=== PATIENT | female | born 1945 | race Caucasian/White ===

== ENCOUNTER 2016-05-20 09:43 | Inpatient (IN) | payer OTHER ==
[~2016-05-20] VITALS: Ht 167.6 cm; Wt 108.3 kg
--- NOTE | 2016-05-20 10:18 | DIAGNOSTIC IMAGING REPORT ---
PROCEDURE: CT HEAD WITHOUT CONTRAST INDICATION: Code stroke. Combative patient. TECHNIQUE: Noncontrast axial images with sagittal and coronal reformations. COMPARISON: None. FINDINGS: Allowing for mild motion, there are mild old small vessel changes of the white matter. Brain and ventricles are otherwise normal. No evidence of an acute process or hemorrhage. Sinuses and mastoids are normal. IMPRESSION: 1. Mild old small vessel changes of the white matter. 2. Otherwise negative head CT. No evidence of acute process. 3. Findings discussed with Dr. Taran Damon at [address] scans at this facility use dose modulation, iterative reconstruction, and/or weight-based dosing when appropriate to reduce radiation dose to as low as reasonably achievable.
--- NOTE | 2016-05-20 11:54 | DIAGNOSTIC IMAGING REPORT ---
PROCEDURE: XR CHEST 1 VIEW INDICATION: Code stroke. TECHNIQUE: Portable AP view (1100 hours) COMPARISON: None. FINDINGS: Allowing for suboptimal inspiration and overlying wires and electrodes, lungs are clear. Mild cardiomegaly. Mediastinum is normal. Thorax is normal. IMPRESSION: 1. Mild cardiomegaly. 2. Otherwise negative chest (allowing for suboptimal inspiration).
--- NOTE | 2016-05-20 13:11 | DIAGNOSTIC IMAGING REPORT ---
PROCEDURE: CTA HEAD WITH CONTRAST INDICATION: Code stroke. TECHNIQUE: 120 ml of Isovue 370 injected intravenously and axial images were obtained from the vertex through the upper mediastinum with 3D sagittal and coronal MIP reconstructions. COMPARISON: Para head CT earlier today (05/20/2016). FINDINGS: AORTIC ARCH: Mild calcified atheromatous changes of the aortic arch and origins of the great vessels. RIGHT CAROTID SYSTEM: Right carotid system is normal. LEFT CAROTID SYSTEM: Findings suggest probable motion at the base of the left common carotid artery. The rest of the left carotid system is normal. VERTEBROBASILAR SYSTEM: Probable mild motion at the origin of the left vertebral artery. The rest of the vertebral basilar system is normal. INTRACRANIAL ANTERIOR CIRCULATION: Anterior intracranial circulation is normal and there is no evidence of thrombus or stenosis. INTRACRANIAL POSTERIOR CIRCULATION: Posterior circulation is normal and there is no evidence of thrombus or stenosis. IMPRESSION: 1. Mild atheromatous change of the aortic arch. 2. Normal right carotid system. 3. Probable motion at the base of the left common carotid artery which is otherwise normal. Underlying stenosis is less likely. Carotid ultrasound is recommended to confirm. 4. Probable motion at the origin of the left vertebral artery. Stenosis is less likely. Otherwise normal vertebral basilar system. 5. Normal anterior intracranial circulation. 6. Normal posterior intracranial circulation. 7. Findings discussed with Dr. Taran Damon. All CT scans at this facility use dose modulation, iterative reconstruction, and/or weight-based dosing when appropriate to reduce radiation dose to as low as reasonably achievable.
--- NOTE | 2016-05-20 14:34 | ED NURSING NOTES ---
Clinical Report - Nurses [address] [address] [place] [address] 05/20/2016 9:45 Patient: TIRSO MELTON TRIAGE Triage time 09:45. Acuity: LEVEL 2. Chief Complaint: IMPAIRED SPEECH. --09:53 Remberto Hogue R.N. 09:48 05/20/16. BP: 163/88. --09:53 Remberto Hogue R.N. 09:48 05/20/16. HR: 60. O2 saturation: 89%. --10:39 Remberto Hogue R.N. Weight: 110.3 kg measured. Height/Length: 66 inches Estimated. BMI: 39.3. --09:49 Remberto Hogue R.N. Medications Atorvastatin Calcium Oral (Tablet 80 mg) 1 tablet, at bedtime. --10:24 Remberto Hogue R.N. Citalopram Hydrobromide Oral (Tablet 20 mg) 1 tablet, daily. --10:25 Remberto Hogue R.N. Coumadin Oral (Tablet 2 mg) 4.5mg, daily. --10:25 Remberto Hogue R.N. LamoTRIgine Oral (Tablet Dispersible 100 mg) 3 tablets, daily. --10:29 Remberto Hogue R.N. LamoTRIgine Oral (Tablet Dispersible 200 mg) 1 tablet, at HS. --10:29 Remberto Hogue R.N. Lisinopril Oral (Tablet 5 mg), daily. --10:29 Remberto Hogue R.N. Metoprolol Tartrate Oral (Tablet 100 mg) 1 tablet, BID. --10:30 Remberto Hogue R.N. Gabapentin Oral (Capsule 300 mg) 1 capsule, 3x a day. --10:31 Remberto Hogue R.N. Tylenol Oral, as needed. --10:31 Remberto Hogue R.N. Dulcolax Oral, as needed. --10:31 Remberto Hogue R.N. Elizabeth-Lanta Oral (prn). --10:32 Remberto Hogue R.N. Milk of Magnesia Oral. --10:32 Remberto Hogue R.N. Senna Oral, as needed. --10:33 Remberto Hogue R.N. Allergies Penicillins. --10:34 Remberto Hogue R.N. History Arrived by EMS. Historian: EMS. Primary physician (adam). ( Code stroke. sudden onset slurred speech 35 min prior to EMS arrival, witnessed by [facility] staff. Pt had CVA 1.5 weeks ago with subsequent right sided deficit. However, per medic and staff new onset slurred speech was sudden and new today. Code stroke called at 0942 prior to pt arrival. [address] This started just prior to arrival. Patient was last known well (0900). Treatment BAG WORKER: None. --09:53 Remberto Hogue R.N. Treatment BAG WORKER: EMS treatment BAG WORKER verbally communicated. See EMS report. Finger stick glucose performed (160). BP: 180/70. HR: 68 (irregularly-irregular). RR: 16. O2 saturation: 95 % room air. Upon arrival patient confused and lethargic. --10:35 Remberto Hogue R.N. PROBLEMS: Weakness. Atrial Fibrillation. Syncope. Hypercapnia. Respiratory Failure. Fall. Polyneuropathy. Morbid obesity. Major depressive disorder. Hyperlipidemia. Dysphagia. Hemiparesis. Hemiplegia. CVA - Cerebrovascular Accident. Nausea. Abdominal Pain. Neuropathy. COPD - Chronic Obstructive Pulmonary Disease. Depression . Htn. --10:34 Remberto Hogue R.N. Interventions ID band on patient. To treatment room. --09:53 Remberto Hogue R.N. PHYSICAL ASSESSMENT 10:15 05/20/16. To room via stretcher. GENERAL / NEURO / PSYCH: Decreased awareness. [place] Coma Scale: 13- eyes open to voice (3); best verbal response- disoriented (4); best motor response- obeys commands (6). Moves extremities with decreased movement of the right upper and lower extremity (RIGHT facial droop). RESPIRATORY: Respirations not labored. CVS: Capillary refill less than 2 seconds. SKIN: Skin is intact, warm and dry. --10:15 Remberto Hogue R.N. NURSING PROGRESS NOTES 09:56 05/20/2016 Ativan (LORazepam) IVP 1 mg given over 1 minute(s) via site #1. Allergies verified and confirmed 5 rights. IV patency established. IV site checked: no pain, redness, or swelling. IV flushed thoroughly pre- and post-medication administration. IVP given by RN. --10:12 Maryann Mckoy R.N. 09:57 05/20/2016 Zofran (Ondansetron HCl) IVP 4 mg given over 1 minute(s) via site #1. Allergies verified and confirmed 5 rights. IV patency established. IV site checked: no pain, redness, or swelling. IV flushed thoroughly pre- and post-medication administration. IVP given by RN. --10:12 Maryann Mckoy R.N. 10:11 05/20/2016 Site #1 started prior to arrival by EMS via IV in the right antecubital space with an 20g angiocath. --10:11 Maryann Mckoy R.N. The plan of care for this patient has been created. bus driver/monitor, pulse oximeter and NIBP monitor placed on patient. Patient gowned. Head of bed elevated. Call light placed in reach. Side rails up x 2. Bed placed in lowest position. Brakes of bed on. --10:15 Remberto Hogue R.N. 09:55. ( Pt became agitated and thrashing upon arrival to CT. Pt began having emesis on CT table and rolled to side by staff.). --10:16 Remberto Hogue R.N. Cardiac rhythm: atrial fibrillation. --10:38 Remberto Hogue R.N. 10:36 05/20/16. BP: 154/87. HR: 65. RR: 17. O2 saturation: 95% on room air. Temp: 98.1 F (oral). Dotson-Gordon pain scale: 06/01. --10:38 Remberto Hogue R.N. 10:45 05/20/2016 Site #2 started via IV in the right forearm with an 20g angiocath, with aseptic technique and good blood return; one attempt. Blood drawn: rainbow set. Labeled in the presence of the patient and sent to the lab. Saline lock flushed with 10 mL saline. --10:45 Maryann Mckoy R.N. EKG time: (1012). EKG was performed by a tech and shown to the ED physician. --10:48 Maryann Mckoy R.N. 11:01 05/20/16. Drew catheter. During procedure hand hygiene observed and sterile equipment and aseptic technique used. Return of yellow-colored clear urine. She tolerated procedure well. Patient ID band checked for patient name and birthdate. Catheterized urine collected; sample sent to lab for urinalysis. Specimen labeled in the presence of the patient. --11:01 Maryann Mckoy R.N. 11:08 05/20/16. --11:08 Remberto Hogue R.N. 11:07 05/20/16. BP: 120/64. HR: 69. RR: 22. O2 saturation: 95% on room air. --11:08 Remberto Hogue R.N. 11:45 05/20/2016 Started 1 gm of Ceftriaxone IVPB in bag #1 50 mL; at 150 mL/hr over 20 minute(s) via site #2 via IV pump. Allergies verified and confirmed 5 rights. IV patency established. IV site checked: no pain, redness, or swelling. IV flushed thoroughly pre- and post-medication administration. --11:45 Maryann Mckoy R.N. 10:25. Finger stick glucose: 99 mg/dL; performed by tech; result shown to the RN. --11:59 Cindy Chapa 12:02 05/20/2016 Ceftriaxone IVPB Discontinued: bag #1 infused. Total amount infused: 50 mL. IV patency established. IV site checked: no pain, redness, or swelling. IV flushed thoroughly. --12:02 Remberto Hogue R.N. Patient returned from CT by stretcher with tech. --12:32 Remberto Hogue R.N. Cardiac rhythm: atrial fibrillation. --12:55 Remberto Hogue R.N. 12:55 05/20/16. BP: 147/88. HR: 75. RR: 23. O2 saturation: 99%. Pain level now 0/10. --12:55 Remberto Hogue R.N. 13:13 05/20/16. BP: 155/70. HR: 70. RR: 22. O2 saturation: 100% on nasal cannula at 2 liters/minute. --13:13 Maryann Mckoy R.N. 14:51 05/20/16. BP: 136/49. HR: 70. RR: 19. O2 saturation: 93% on room air. Pain level now: 0/10. --14:51 Maryann Mckoy R.N. 14:52 05/20/16. ( Pt alert and oriented x 3. Pt speaking to her son at bedside, and her son on the phone. Pt eating ice chips.). --14:52 Maryann Mckoy R.N. 15:15 05/20/16. BP: 142/71. HR: 64. RR: 18. O2 saturation: 91% on room air. --15:15 Maryann Mckoy R.N. DISPOSITION / DISCHARGE 15:48 05/20/16. BP: 132/70. HR: 74. RR: 18. O2 saturation: 95% on room air. Temp: 97.7 F (oral). Pain level now: 0/10. --15:55 Maryann Mckoy R.N. Departure time: 15:54 May 20 2016. Condition at departure: improved and stable. Admitted to Acute Care. Transported via stretcher by [facility]. Report was given to a nurse via a phone call. Report included patient's care, treatment, medications, reviewed medication reconcilliation, and condition (including any recent changes or anticipated changes). All questions were answered. Report was acknowledged and care was transferred. (JOE Agarwal). Patient has no belongings. Patient's personal items include, pt's friend took her clothes home. --15:55 Maryann Mckoy R.N. 15:48 05/20/2016 Site #[address] upon admission; patent, no pain and no signs of infection or infiltration. Flushed with 10 mL saline; flushes easily. --16:13 Maryann Mckoy R.N. 15:48 05/20/2016 Site #[address] upon admission; patent, no pain and no signs of infection or infiltration. Flushed with 10 mL saline; flushes easily. --16:13 Maryann Mckoy R.N. Locked/Released at 05/20/2016 16:13 by Maryann Mckoy R.N.
--- NOTE | 2016-05-20 14:34 | ED ORDER SUMMARY ---
..... Patient: TIRSO MELTON OrderSheet [facility] VisitID: [id number] [place] [address] 71y, F Registration Date/Time: 05/20/2016 ORDER SHEET Weight: 110.3 kg (measured) Allergies: Penicillins GENERAL ORDERS: CT Head wo Cont Urgent (09:50 05/20/2016 Love Booker) (10:11 MWinterer R.N.) Stroke Panel Stat (10:31 05/20/2016 Love Booker) (Ack 10:37 LTapper) (10:44 MWinterer R.N.) Chest 1V Urgent (10:43 05/20/2016 Love Booker) (Ack 10:53 LTapper) (11:00 MWinterer R.N.) Low Voltage Technician (Continuous) (stroke) (10:43 05/20/2016 Love Booker) (10:44 MWinterer R.N.) Pulse oximeter (10:43 05/20/2016 Love Booker) (10:44 MWinterer R.N.) EKG - ER Stat (10:45 05/20/2016 Love Booker) (10:48 MWinterer R.N.) UA-Culture if indicated Urgent (10:47 05/20/2016 Love Booker) (Ack 10:53 LTapper) (11:00 MWinterer R.N.) - (consult stroke neuro timed at 10:25 am) (11:02 05/20/2016 Love Booker) (11:03 MWinterer R.N.) CTA Head w Cont (No) (grf > 60) Urgent (11:49 05/20/2016 Love Booker) (Ack 12:10 RKaruga) (14:24 MWinterer R.N.) MEDICATION ORDERS: IV FLUIDS: Ativan IV 1 mg (HIGH ALERT MEDICATION, NOW) (09:55 05/20/2016 Love Booker) (10:12 MWinterer R.N.) Zofran IV 4 mg (NOW) (10:12 05/20/2016 MWinterer R.N. verbal order read back to Love Booker) (10:12 MWinterer R.N.) IV Saline Lock (10:43 05/20/2016 Love Booker) (10:45 MWinterer R.N.) IV Saline Lock (10:45 05/20/2016 Love Booker) (11:00 MWinterer R.N.) Ceftriaxone IV 1 gm/50mL (NOW) (11:22 05/20/2016 Love Booker) (Ack 11:31 MWinterer R.N.) (11:45 MWinterer R.N.) ORDER SHEET NOTES: [Electronically signed by Maryann Mckoy R.N. (16:13 05/20/2016)] [Electronically signed by Taran Damon Dr. (10:13 05/21/2016)] [Electronically locked/signed by Maryann Mckoy R.N. (16:13 05/20/2016)]
--- NOTE | 2016-05-20 14:34 | ED NURSING NOTES ---
Clinical Report - Nurses [address] [address] [place] [address] 05/20/2016 9:45 Patient: TIRSO MELTON TRIAGE Triage time 09:45. Acuity: LEVEL 2. Chief Complaint: IMPAIRED SPEECH. --09:53 Remberto Hogue R.N. 09:48 05/20/16. BP: 163/88. --09:53 Remberto Hogue R.N. 09:48 05/20/16. HR: 60. O2 saturation: 89%. --10:39 Remberto Hogue R.N. Weight: 110.3 kg measured. Height/Length: 66 inches Estimated. BMI: 39.3. --09:49 Remberto Hogue R.N. Medications Atorvastatin Calcium Oral (Tablet 80 mg) 1 tablet, at bedtime. --10:24 Remberto Hogue R.N. Citalopram Hydrobromide Oral (Tablet 20 mg) 1 tablet, daily. --10:25 Remberto Hogue R.N. Coumadin Oral (Tablet 2 mg) 4.5mg, daily. --10:25 Remberto Hogue R.N. LamoTRIgine Oral (Tablet Dispersible 100 mg) 3 tablets, daily. --10:29 Remberto Hogue R.N. LamoTRIgine Oral (Tablet Dispersible 200 mg) 1 tablet, at HS. --10:29 Remberto Hogue R.N. Lisinopril Oral (Tablet 5 mg), daily. --10:29 Remberto Hogue R.N. Metoprolol Tartrate Oral (Tablet 100 mg) 1 tablet, BID. --10:30 Remberto Hogue R.N. Gabapentin Oral (Capsule 300 mg) 1 capsule, 3x a day. --10:31 Remberto Hogue R.N. Tylenol Oral, as needed. --10:31 Remberto Hogue R.N. Dulcolax Oral, as needed. --10:31 Remberto Hogue R.N. Elizabeth-Lanta Oral (prn). --10:32 Remberto Hogue R.N. Milk of Magnesia Oral. --10:32 Remberto Hogue R.N. Senna Oral, as needed. --10:33 Remberto Hogue R.N. Allergies Penicillins. --10:34 Remberto Hogue R.N. History Arrived by EMS. Historian: EMS. Primary physician (adam). ( Code stroke. sudden onset slurred speech 35 min prior to EMS arrival, witnessed by [facility] staff. Pt had CVA 1.5 weeks ago with subsequent right sided deficit. However, per medic and staff new onset slurred speech was sudden and new today. Code stroke called at 0942 prior to pt arrival. [address] This started just prior to arrival. Patient was last known well (0900). Treatment GRAPPLE CREW LEADER: None. --09:53 Remberto Hogue R.N. Treatment GRAPPLE CREW LEADER: EMS treatment GRAPPLE CREW LEADER verbally communicated. See EMS report. Finger stick glucose performed (160). BP: 180/70. HR: 68 (irregularly-irregular). RR: 16. O2 saturation: 95 % room air. Upon arrival patient confused and lethargic. --10:35 Remberto Hogue R.N. PROBLEMS: Weakness. Atrial Fibrillation. Syncope. Hypercapnia. Respiratory Failure. Fall. Polyneuropathy. Morbid obesity. Major depressive disorder. Hyperlipidemia. Dysphagia. Hemiparesis. Hemiplegia. CVA - Cerebrovascular Accident. Nausea. Abdominal Pain. Neuropathy. COPD - Chronic Obstructive Pulmonary Disease. Depression . Htn. --10:34 Remberto Hogue R.N. Interventions ID band on patient. To treatment room. --09:53 Remberto Hogue R.N. PHYSICAL ASSESSMENT 10:15 05/20/16. To room via stretcher. GENERAL / NEURO / PSYCH: Decreased awareness. [place] Coma Scale: 13- eyes open to voice (3); best verbal response- disoriented (4); best motor response- obeys commands (6). Moves extremities with decreased movement of the right upper and lower extremity (RIGHT facial droop). RESPIRATORY: Respirations not labored. CVS: Capillary refill less than 2 seconds. SKIN: Skin is intact, warm and dry. --10:15 Remberto Hogue R.N. NURSING PROGRESS NOTES 09:56 05/20/2016 Ativan (LORazepam) IVP 1 mg given over 1 minute(s) via site #1. Allergies verified and confirmed 5 rights. IV patency established. IV site checked: no pain, redness, or swelling. IV flushed thoroughly pre- and post-medication administration. IVP given by RN. --10:12 Maryann Mckoy R.N. 09:57 05/20/2016 Zofran (Ondansetron HCl) IVP 4 mg given over 1 minute(s) via site #1. Allergies verified and confirmed 5 rights. IV patency established. IV site checked: no pain, redness, or swelling. IV flushed thoroughly pre- and post-medication administration. IVP given by RN. --10:12 Maryann Mckoy R.N. 10:11 05/20/2016 Site #1 started prior to arrival by EMS via IV in the right antecubital space with an 20g angiocath. --10:11 Maryann Mckoy R.N. The plan of care for this patient has been created. patient monitor, pulse oximeter and NIBP monitor placed on patient. Patient gowned. Head of bed elevated. Call light placed in reach. Side rails up x 2. Bed placed in lowest position. Brakes of bed on. --10:15 Remberto Hogue R.N. 09:55. ( Pt became agitated and thrashing upon arrival to CT. Pt began having emesis on CT table and rolled to side by staff.). --10:16 Remberto Hogue R.N. Cardiac rhythm: atrial fibrillation. --10:38 Remberto Hogue R.N. 10:36 05/20/16. BP: 154/87. HR: 65. RR: 17. O2 saturation: 95% on room air. Temp: 98.1 F (oral). Dotson-Gordon pain scale: 06/01. --10:38 Remberto Hogue R.N. 10:45 05/20/2016 Site #2 started via IV in the right forearm with an 20g angiocath, with aseptic technique and good blood return; one attempt. Blood drawn: rainbow set. Labeled in the presence of the patient and sent to the lab. Saline lock flushed with 10 mL saline. --10:45 Maryann Mckoy R.N. EKG time: (1012). EKG was performed by a tech and shown to the ED physician. --10:48 Maryann Mckoy R.N. 11:01 05/20/16. Drew catheter. During procedure hand hygiene observed and sterile equipment and aseptic technique used. Return of yellow-colored clear urine. She tolerated procedure well. Patient ID band checked for patient name and birthdate. Catheterized urine collected; sample sent to lab for urinalysis. Specimen labeled in the presence of the patient. --11:01 Maryann Mckoy R.N. 11:08 05/20/16. --11:08 Remberto Hogue R.N. 11:07 05/20/16. BP: 120/64. HR: 69. RR: 22. O2 saturation: 95% on room air. --11:08 Remberto Hogue R.N. 11:45 05/20/2016 Started 1 gm of Ceftriaxone IVPB in bag #1 50 mL; at 150 mL/hr over 20 minute(s) via site #2 via IV pump. Allergies verified and confirmed 5 rights. IV patency established. IV site checked: no pain, redness, or swelling. IV flushed thoroughly pre- and post-medication administration. --11:45 Maryann Mckoy R.N. 10:25. Finger stick glucose: 99 mg/dL; performed by tech; result shown to the RN. --11:59 Cindy Chapa 12:02 05/20/2016 Ceftriaxone IVPB Discontinued: bag #1 infused. Total amount infused: 50 mL. IV patency established. IV site checked: no pain, redness, or swelling. IV flushed thoroughly. --12:02 Remberto Hogue R.N. Patient returned from CT by stretcher with tech. --12:32 Remberto Hogue R.N. Cardiac rhythm: atrial fibrillation. --12:55 Remberto Hogue R.N. 12:55 05/20/16. BP: 147/88. HR: 75. RR: 23. O2 saturation: 99%. Pain level now 0/10. --12:55 Remberto Hogue R.N. 13:13 05/20/16. BP: 155/70. HR: 70. RR: 22. O2 saturation: 100% on nasal cannula at 2 liters/minute. --13:13 Maryann Mckoy R.N. 14:51 05/20/16. BP: 136/49. HR: 70. RR: 19. O2 saturation: 93% on room air. Pain level now: 0/10. --14:51 Maryann Mckoy R.N. 14:52 05/20/16. ( Pt alert and oriented x 3. Pt speaking to her son at bedside, and her son on the phone. Pt eating ice chips.). --14:52 Maryann Mckoy R.N. 15:15 05/20/16. BP: 142/71. HR: 64. RR: 18. O2 saturation: 91% on room air. --15:15 Maryann Mckoy R.N. DISPOSITION / DISCHARGE 15:48 05/20/16. BP: 132/70. HR: 74. RR: 18. O2 saturation: 95% on room air. Temp: 97.7 F (oral). Pain level now: 0/10. --15:55 Maryann Mckoy R.N. Departure time: 15:54 May 20 2016. Condition at departure: improved and stable. Admitted to Acute Care. Transported via stretcher by [facility]. Report was given to a nurse via a phone call. Report included patient's care, treatment, medications, reviewed medication reconcilliation, and condition (including any recent changes or anticipated changes). All questions were answered. Report was acknowledged and care was transferred. (JOE Agarwal). Patient has no belongings. Patient's personal items include, pt's friend took her clothes home. --15:55 Maryann Mckoy R.N. 15:48 05/20/2016 Site #[address] upon admission; patent, no pain and no signs of infection or infiltration. Flushed with 10 mL saline; flushes easily. --16:13 Maryann Mckoy R.N. 15:48 05/20/2016 Site #[address] upon admission; patent, no pain and no signs of infection or infiltration. Flushed with 10 mL saline; flushes easily. --16:13 Maryann Mckoy R.N. Locked/Released at 05/20/2016 16:13 by Maryann Mckoy R.N.
--- NOTE | 2016-05-20 14:34 | ED CLINICAL REPORT ---
Clinical Report - Physicians/Mid Levels [facility] [address] [place] [address] 05/20/2016 9:45 Patient: TIRSO MELTON Arrived- By private vehicle. Historian- patient. HISTORY OF PRESENT ILLNESS Chief Complaint: FACIAL DROOP and IMPAIRED SPEECH. This started today at approximately 9:00 this morning, patient was last known well (9 AM today) and is still present. It was abrupt in onset and has been constant but is not gone now. The patient has had weakness. No numbness, tingling, visual disturbance or impaired swallowing. She has had difficulty with speech. At its maximum deficit described as moderate. When seen in the E.D.,deficit described as moderate. The patient has had altered mental status. No seizure or blackouts. Usually is alert and oriented X3. (residual right-sided weakness with prior CVA approximately one and a half weeks ago.). Similar symptoms previously: Once. Recent medical care: The patient was seen recently and hospitalized. REVIEW OF SYSTEMS Unobtainable due to patient's altered mental status. PAST HISTORY See nurses notes. Medications: Senna Oral, as needed. Milk of Magnesia Oral. Elizabeth-Lanta Oral (prn). Dulcolax Oral, as needed. Tylenol Oral, as needed. Gabapentin Oral (Capsule 300 mg) 1 capsule, 3x a day. Metoprolol Tartrate Oral (Tablet 100 mg) 1 tablet, BID. Lisinopril Oral (Tablet 5 mg), daily. LamoTRIgine Oral (Tablet Dispersible 200 mg) 1 tablet, at HS. LamoTRIgine Oral (Tablet Dispersible 100 mg) 3 tablets, daily. Coumadin Oral (Tablet 2 mg) 4.5mg, daily. Citalopram Hydrobromide Oral (Tablet 20 mg) 1 tablet, daily. Atorvastatin Calcium Oral (Tablet 80 mg) 1 tablet, at bedtime. Allergies: Penicillins. SOCIAL HISTORY unable to obtain secondary to patient'smedical condition. FAMILY HISTORY unable to obtain secondary to patient's medical condition. ADDITIONAL NOTES The nursing notes have been reviewed. PHYSICAL EXAM Vital Signs: 05/20/2016 09:48 BP: 163/88. Hypertensive. Oxygen saturation normal. Appearance: ( sleepy). (obviously ill. non-toxic). Head: Head atraumatic. Eyes: Pupils equal, round and reactive to light. Pupillary exam: Right pupil round and reactive to light directly and consensually and with accommodation. Left pupil: round and reactive to light directly and consensually and with accommodation. ENT: Normal ENT inspection. Airway intact. Pharynx normal. Neck: Normal inspection. Neck supple. No meningeal signs. CVS: Heart rate / rhythm abnormal. Abnormal rate (normal rate). Not tachycardic. Abnormal rhythm. Heart sounds normal. Pulses normal. Respiratory: No respiratory distress. Breath sounds normal. Abdomen: Soft and nontender. No organomegaly. Back: Normal inspection. Skin: Skin warm and dry. Normal skin color. No rash. Normal skin turgor. Extremities: No lower extremity edema. (normal musle bulk and build). Neuro: Not alert. Severely altered mental status: lethargic. Eyes do not open. Best verbal response: incoherent speech. Best motor response: obeys commands. Abnormal verbal response (inappropriate, incoherent, expressive aphasia, dysphasia). Expressive aphasia. Abnormal speech. Facial weakness. Decreased corneal reflex. No cerebellar findings. Finger-nose test abnormal (unable to test). Abnormal gait (unable to test). The patient has had constant, generalized weakness of the right face (moderate), right arm (mild), right hand (mild), right leg (mild), right foot (mild), left arm (mild), left hand (mild), left leg (mild) and left foot (mild). No sensory deficit. No sensory deficit. LABS, X-RAYS, AND EKG EKG: Atrial fibrillation (narrow-complex) (66). Abnormal P waves. Normal QRS complex. Normal axis. Normal ST and T waves, QT and QTc. No ST elevation or depression. The study has been interpreted contemporaneously by me. The study has been independently viewed by me. The EKG appears to be a good tracing. Chest X-ray: (PROCEDURE: XR CHEST 1 VIEW INDICATION: Code stroke. TECHNIQUE: Portable AP view (1100 hours) COMPARISON: None. FINDINGS: Allowing for suboptimal inspiration and overlying wires and electrodes, lungs are clear. Mild cardiomegaly. Mediastinum is normal. Thorax is normal. IMPRESSION: 1. Mild cardiomegaly.). Views: AP (portable). The X-rays were independently viewed by me and interpreted by the radiologist. The X-rays were discussed with the radiologist (via pacs). CT Head: (PROCEDURE: CT HEAD WITHOUT CONTRAST INDICATION: Code stroke. Combative patient. TECHNIQUE: Noncontrast axial images with sagittal and coronal reformations. COMPARISON: None. FINDINGS: Allowing for mild motion, there are mild old small vessel changes of the white matter. Brain and ventricles are otherwise normal. No evidence of an acute process or hemorrhage. Sinuses and mastoids are normal. IMPRESSION: 1. Mild old small vessel changes of the white matter. 2. Otherwise negative head CT. No evidence of acute process.). Head CT performed without contrast. The study was independently viewed by me and interpreted by the radiologist. The study was discussed with the radiologist (via phone and pacs). Laboratory Tests: CBC w Diff: (ELIER: 05/21/2016 05:05) ( [facility] [place] 05/21/2016 05:57) Final results Test Result Flag Units (Reference) WHITE BLOOD COUNT 7.3 K/uL (4.5-11.5) RED BLOOD COUNT 4.40 M/uL (4.00-5.20) HEMOGLOBIN 12.0 gm/dL (12.0-16.0) HEMATOCRIT 36.6 % (36.0-46.0) MEAN CELL VOLUME 83 fL (80-100) MEAN CORPUSCULAR HGB 27 pg (26-34) MEAN CORPUSCULAR HGB CONC 33 g/dL (31-37) RED CELL DISTRIBUTION WIDTH 14.9 H % (11.6-14.8) PLATELET COUNT 204 K/uL (150-400) NEUTROPHIL % 61.8 % (50-75) LYMPH % 25.6 % (25-40) MONO % 8.8 % (3-14) EOSINOPHIL % 3.3 % (0-4) BASOPHIL % 0.5 % (0-2) PT with INR: (ELIER: 05/21/2016 05:05) ( [facility] [place] 05/21/2016 06:03) Final results Test Result Flag Units (Reference) INR 2.6 H (0.8-1.2) Low Intensity Therapy: INR 1.5-2.0 PT range 18.5-23.1Mod.Intensity Therapy: INR 2.0-3.0 PT range 23.1-31.5High Intensity Therapy: INR 2.5-3.5 PT range 27.4-35.5High Intensity Therapy 2: INR 3.0-4.0 PT range 31.5-39.3 BMP: (ELIER: 05/21/2016 05:05) ( MsgRcvd 05/21/2016 05:58) Final results Test Result Flag Units (Reference) GLUCOSE 110 mg/dL (70-110) BUN 14 mg/dL (7-18) CREATININE 0.8 mg/dL (0.6-1.3) Estimated GFR >60 mL/min Estimated GFR- >60 mL/min Note: Persistent reduction over 3 months in eGFR<60 mL/min/1.73 m2 defines CKD. Patients with eGFR values>=60 mL/min/1.73 m2 may also have CKD if evidence ofpersistent proteinuria. Additional information may be foundat [email or web address]. SODIUM 143 mmol/L (136-145) POTASSIUM 3.5 mmol/L (3.5-5.1) CHLORIDE 106 mmol/L (98-107) CARBON DIOXIDE 31 mmol/L (21-32) CALCIUM 8.3 L mg/dL (8.5-10.1) UA-Culture if indicated: (ELIER: 05/20/2016 10:56) ( MsgRcvd 05/20/2016 11:14) Final results Test Result Flag Units (Reference) URINE COLOR YELLOW URINE APPEARANCE CLEAR URINE GLUCOSE NEGATIVE (NEGATIVE) URINE BILIRUBIN NEGATIVE (NEGATIVE) URINE KETONE NEGATIVE (NEGATIVE) URINE SPECIFIC GRAVITY 1.020 (1.010-1.030) URINE PH 6.5 (5.0-8.0) URINE PROTEIN TRACE (NEGATIVE) URINE UROBILINOGEN 1.0 EU/dL (0.2-1.0) URINE NITRITE NEGATIVE (NEGATIVE) URINE BLOOD NEGATIVE (NEGATIVE) URINE LEUK ESTERASE TRACE (NEGATIVE) URINE RBC 0-1 rbc/hpf (0-1) URINE WBC 5-10 wbc/hpf (0-1) URINE EPITHELIAL CELLS 1-3 EPI/hpf (0-5) URINE BACTERIA MODERATE (2+ TO 3+) (NONE SEEN) URINE COMMENT CULTURE INDICATED 1+ MUCOUS. FEW TRANSITIONAL EPITHELIAL CELLS.URINE CULTURES ARE SET-UP BASED ON THE FOLLOWING CRITERIA:POSITIVE NITRITEPOSITIVE LEUKOCYTE ESTERASEGREATER THAN 10 WHITE BLOOD CELLSMODERATE (2+) OR GREATER BACTERIA CBC w Diff: (ELIER: 05/20/2016 10:38) ( Mscvd 05/20/2016 10:47) Final results Test Result Flag Units (Reference) WHITE BLOOD COUNT 9.7 K/uL (4.5-11.5) RED BLOOD COUNT 4.62 M/uL (4.00-5.20) HEMOGLOBIN 12.6 gm/dL (12.0-16.0) HEMATOCRIT 38.0 % (36.0-46.0) MEAN CELL VOLUME 82 fL (80-100) MEAN CORPUSCULAR HGB 27 pg (26-34) MEAN CORPUSCULAR HGB CONC 33 g/dL (31-37) RED CELL DISTRIBUTION WIDTH 15.4 H % (11.6-14.8) PLATELET COUNT 259 K/uL (150-400) NEUTROPHIL % 74.4 % (50-75) LYMPH % 16.2 L % (25-40) MONO % 6.5 % (3-14) EOSINOPHIL % 2.6 % (0-4) BASOPHIL % 0.3 % (0-2) PT with INR: (ELIER: 05/20/2016 10:38) ( MsgRcvd 05/20/2016 11:00) Final results Test Result Flag Units (Reference) INR 2.5 H (0.8-1.2) Low Intensity Therapy: INR 1.5-2.0 PT range 18.5-23.1Mod.Intensity Therapy: INR 2.0-3.0 PT range 23.1-31.5High Intensity Therapy: INR 2.5-3.5 PT range 27.4-35.5High Intensity Therapy 2: INR 3.0-4.0 PT range 31.5-39.3 APTT 54 H SECONDS (24-34) FIBRINOGEN 489 H mg/dL (193-455) D-DIMER QUANTITATIVE 1.79 H ug/mLFEU (0.27-0.52) The primary value of this quantitative assay relates toits negative predictive value (i.e. exclusion) of pulmonaryembolism/deep vein thrombosis/DIC.Elevated levels of d-dimer may also occur with:, age, cancer, inflammation, liver disease,post-op, infection, hematoma, coronary disease, peripheralarteriopathy, bleeding disorders and thrombolytic treatment.Results should be correlated with other clinical andradiological data.Testing Methodology: Latex Immunoassay CMP: (ELIER: 05/20/2016 10:38) ( MsgRcvd 05/20/2016 11:03) Final results Test Result Flag Units (Reference) GLUCOSE 118 H mg/dL (70-110) BUN 15 mg/dL (7-18) CREATININE 0.9 mg/dL (0.6-1.3) Estimated GFR >60 mL/min Estimated GFR- >60 mL/min Note: Persistent reduction over 3 months in eGFR<60 mL/min/1.73 m2 defines CKD. Patients with eGFR values>=60 mL/min/1.73 m2 may also have CKD if evidence ofpersistent proteinuria. Additional information may be foundat [email or web address]. SODIUM 145 mmol/L (136-145) POTASSIUM 3.6 mmol/L (3.5-5.1) CHLORIDE 106 mmol/L (98-107) CARBON DIOXIDE 32 mmol/L (21-32) CALCIUM 8.4 L mg/dL (8.5-10.1) TOTAL PROTEIN 6.5 g/dL (6.4-8.2) ALBUMIN 2.9 L g/dL (3.3-5.0) BILIRUBIN, TOTAL 0.6 mg/dL (0.0-1.0) ALKALINE PHOSPHATASE 92 U/L (46-116) AST (SGOT) 24 U/L (15-37) ALT (SGPT) 24 U/L (12-78) Culture, Urine: (ELIER: 05/20/2016 10:56) ( MsgRcvd 05/21/2016 09:22) IP Test Result Flag Units (Reference) CULTURE, URINE DATE: 05/21/16 PRELIM REPORT: PRELIMINARY REPORT #1 Results faxed: ACUTE CARE 05/21/16 @[id number] -- GNR QUANTITATIVE URINE GROWTH: GREATER THAN 100,000 CFU/mL ID AND SENS TO FOLLOW: IDENTIFICATION AND SENSITIVITY TO FOLLOW . PROGRESS AND PROCEDURES Course of Care: The patient is a 71 yo female with hx of CVA last week presenting for evaluation of slurred speech and right sided facial droop. Patient with reported residual deficits on the right side. Patient is not able to communicate verbally. CT scan for code stroke ordered immediately. Accu-Chek in the field noted to be normal. Patient with agitation in the CT scanner. Ativan IV ordered. Patient with improved cooperation. Episode of wretching that improved with IV zofran. Patient obtained CT scan without further incident. Repeat neuro exam shows patient with NIH stroke scale of 15. Patient continues to have unchanged neuro exam. Per EMS, patient needed intubation on last time they transported patient. Patient taken to [facility] in [place]. Requesting records. At this time. Patient not a candidate for tPA. had spoken with the stroke neurology team over at [facility]. Had spoken to the stroke fellow Dr. Walton. Requested the patient's CT scan be pushed over to their system. This has been performed. Report that they will contact us back after they've reviewed the CT scan results. Had alsoinformed the staff there of the patient's recent admission to [facility] in [place] forsimilar presentation. Therefore the family will review the images there as they do have access. We were contacted back by [facility] in regards to further workup to be performed on the patient. Because of the patient's atrial fibrillation there was a possibility of embolicausing the patient's symptoms of stroke in the emergency department today. Because of this, they requested a CTA of the head be performed. there was possibility of having the clot removed if one was present and causing the patient's symptoms here today. CT A of the head was ordered. I had called to radiology to pushed the patient to the front of the line. Per neurology, there was a 6 hour window from the onset of symptoms to when the embolectomy could occur. Family updated on the status of the patient's workup and any procedures. I discussion with the family in regards to possibilities of treatment and transfer to an outside facility. The expressed financial concerns for the medical billhowever was agreeable to the treatment if it was recommended. Patient is noted to be a [employer]. They requested no blood products be given. Because of the time window, there is approximately 2 hours leftperiod because of the nature of the situation, we had contacted flight medics for emergency transport via air. The patient's CT scan was performed. We had contacted [facility] to have these reviewed because of the time sensitive nature of the scan. We are awaiting their review. CT scan was reviewed by [facility]. They state that they will get back to us after they had consult with the interventional neuroradiologist. We had heard back from the interventional neuroradiologist and they are unable to safely remove the clot because of thedistal nature of the blockage. They report the blockage was in the M3 branch of the left middle cerebral artery. They report because of the small area, it would be unlikely to prove any benefit for the removal of the clot and would only put the patient at increased risk of complications. because of the patient's clinical presentation, patient will still need to be admitted to the hospital. the stroke team at [facility] recommended that the patient be taken off the warfarin and does not need to have aspirin therapy at this ti Plan is to monitor the patient's progression and obtain stroke workup at our facility. I'd spoken to our hospitalist who will accept the patient. While the patient was awaiting transfer to the floor, noted to have rapid improvement of her symptoms. Patient became verbaland states that she can remember everything that happened. Patient without any signs of facial droop. Per family, patient is back at baseline. Patient was admitted without any delay or worsening of condition. Family updated on workup, diagnosis, and plan of care. All questions answered. The patient and family expressed understanding of these instructions and was agreeable to them. Critical care performed (120 minutes). Time is exclusive of separately billable procedures. Time includes: direct patient care, patient reassessment, coordination of patient care, interpretation of data (laboratory data and chest xrays), review of patient's medical records, medical consultation, family consultation regarding treatment decisions and documentation of patient care. Disposition: Admitted to Acute Care. (Electronically signed by Taran Damon Dr. 05/21/2016 10:13)
--- NOTE | 2016-05-20 14:34 | ED ORDER SUMMARY ---
..... Patient: TIRSO MELTON OrderSheet [facility] VisitID: [id number] [place] [address] 71y, F Registration Date/Time: 05/20/2016 ORDER SHEET Weight: 110.3 kg (measured) Allergies: Penicillins GENERAL ORDERS: CT Head wo Cont Urgent (09:50 05/20/2016 Love Booker) (10:11 MWinterer R.N.) Stroke Panel Stat (10:31 05/20/2016 Love Booker) (Ack 10:37 LTapper) (10:44 MWinterer R.N.) Chest 1V Urgent (10:43 05/20/2016 Love Booker) (Ack 10:53 LTapper) (11:00 MWinterer R.N.) Second Worker (Continuous) (stroke) (10:43 05/20/2016 Love Booker) (10:44 MWinterer R.N.) Pulse oximeter (10:43 05/20/2016 Love Booker) (10:44 MWinterer R.N.) EKG - ER Stat (10:45 05/20/2016 Love Booker) (10:48 MWinterer R.N.) UA-Culture if indicated Urgent (10:47 05/20/2016 Love Booker) (Ack 10:53 LTapper) (11:00 MWinterer R.N.) - (consult stroke neuro timed at 10:25 am) (11:02 05/20/2016 Love Booker) (11:03 MWinterer R.N.) CTA Head w Cont (No) (grf > 60) Urgent (11:49 05/20/2016 Love Booker) (Ack 12:10 RKaruga) (14:24 MWinterer R.N.) MEDICATION ORDERS: IV FLUIDS: Ativan IV 1 mg (HIGH ALERT MEDICATION, NOW) (09:55 05/20/2016 Love Booker) (10:12 MWinterer R.N.) Zofran IV 4 mg (NOW) (10:12 05/20/2016 MWinterer R.N. verbal order read back to Love Booker) (10:12 MWinterer R.N.) IV Saline Lock (10:43 05/20/2016 Love Booker) (10:45 MWinterer R.N.) IV Saline Lock (10:45 05/20/2016 Love Booker) (11:00 MWinterer R.N.) Ceftriaxone IV 1 gm/50mL (NOW) (11:22 05/20/2016 Love Booker) (Ack 11:31 MWinterer R.N.) (11:45 MWinterer R.N.) ORDER SHEET NOTES: [Electronically signed by Maryann Mckoy R.N. (16:13 05/20/2016)] [Electronically signed by Taran Damon Dr. (10:13 05/21/2016)] [Electronically locked/signed by Maryann Mckoy R.N. (16:13 05/20/2016)]
[2016-05-20 16:36] VITALS: BP 155/87
[2016-05-20] MEDS ORDERED: LIPITOR80 MG PO (16:43)
[2016-05-20] MEDS ORDERED: CITALOPRAM HYDR20 MG PO (16:43)
[2016-05-20] MEDS ORDERED: COUMADIN4 MG PO (16:44)
[2016-05-20] MEDS ORDERED: ALOPHEN5 MG PR (16:45)
[2016-05-20] MEDS ORDERED: NEURONTIN300 MG PO (16:48)
[2016-05-20] MEDS ORDERED: MYLANT1 PO (16:49)
[2016-05-20] MEDS ORDERED: LAMICTAL ODT200 MG PO (16:49)
[2016-05-20] MEDS ORDERED: LAMOTRIGINE100 MG PO (16:50)
[2016-05-20] MEDS ORDERED: PRINIVIL5 MG PO (16:50)
[2016-05-20] MEDS ORDERED: LOPRESSOR50 MG PO (16:50)
[2016-05-20] MEDS ORDERED: MILK OF MAGNESI10 ML PO (16:52)
[2016-05-20] MEDS ORDERED: SENNA-LAX8.6 MG PO (16:52)
[2016-05-20] MEDS ORDERED: ACETAMINOPHEN325 MG PO (16:53)
[2016-05-20 18:08] VITALS: BP 142/75
--- NOTE | 2016-05-20 20:39 | HISTORY AND PHYSICAL ---
ADMITTED: 05/20/2016 CHIEF COMPLAINT: 1. Altered mental status 2. High blood pressure HISTORY OF PRESENT ILLNESS: This is a 71-year-old female who was recently admitted to [facility] with a diagnosis of a stroke, currently in rehabilitation, recovering from that stroke, who had a sudden onset of altered mental status and significantly elevated blood pressures earlier today. She was transported to [facility] Emergency Department immediately and was diagnosed with a stroke. The patient apparently had been having intermittent episodic unprovoked agitation for the 1-2 months prior to her presentation to the emergency department at [place] on 05/09/2016. At that time, she awoke and was seen abnormally sitting on a chair with coffee on the side table but not drinking it. Around 7:30, she had acute onset of abdominal pain and cramping and then reported nausea. She then tried to grab for something and was unable to speak, but could answer yes or no. 911 was called and felt that she might have been having right-sided weakness and transported her to the emergency room. In the ambulance, she was combative and felt unable to protect her airway and, therefore, was intubated with succinylcholine, etomidate, Versed, and fentanyl. CTA of the head showed pulmonary artery dilatation to 4.2 cm, suggestive of pulmonary hypertension; mild plaque at the right carotid bifurcation with no hemodynamically significant narrowing; atherosclerosis of the supraclinoid right ICA with maximal narrowing of 34%; atherosclerosis of the supraclinoid left ICA with maximal narrowing of 50%. Lung apices were noted to have mild central lobar emphysema, mild diffuse ground-glass density with minimal interlobular septal thickening within the visualized lung apices, suggestive of alveolar and/or interstitial pulmonary edema. CTA showed 2 small left frontal white matter acute lacunar infarcts. T-PA was not given at that time as it was thought to be out of the window. TTE was performed during this hospitalization and showed an ejection fraction of 55% to 60% with a negative bubble study and atrial fibrillation and PAP of 28 mmHg. The patient was monitored in the hospital until 05/16/2016 and then was discharged to [facility]. She was recovering at [facility] when the nurse noted this morning she had sudden onset of significant altered mental status and severe hypertension. An ambulance was called, and patient was transferred to [facility] Emergency Room. MEDICAL/SURGICAL HISTORY: Past medical history: 1. Hypertension. 2. Chronic obstructive pulmonary disease. 3. Atrial fibrillation. 4. Bipolar spectrum disorder. 5. CVA, 04/2016. Past surgical history: Partial colectomy secondary to diverticulosis. MEDICATIONS: 1. Atorvastatin 80 mg p.o. daily. 2. Citalopram 20 mg p.o. daily. 3. Coumadin 4.5 mg p.o. daily. 4. Lamictal 300 mg p.o. daily and 200 mg p.o. at bedtime. 5. Lisinopril 5 mg p.o. daily. 6. Gabapentin 300 mg p.o. t.i.d. 7. Metoprolol 100 mg p.o. b.i.d. 8. Tylenol 650 mg p.o. q.4 hours p.r.n. ALLERGIES: 1. PENICILLIN. SOCIAL HISTORY: The patient, prior to being at [facility] and [facility], was living with her and 8 kitties. She quit smoking 12 years ago after 34- pack-years of smoking. She denies any drug or alcohol use. The patient is a Restorationist and adamantly denies blood transfusions. FAMILY HISTORY: Her grandfather had a heart attack in his 60s. Her grandmother of old age. Her mother of an unknown type of cancer. Her father of leukemia. REVIEW OF SYSTEMS: A full 12-point review of systems was done and was negative, except as per HPI. PHYSICAL EXAMINATION: VITAL SIGNS: Blood pressure is 142/75, pulse is 72, respiratory rate is 16, O2 saturation 94% on room air. T-max is 36.7 degrees Celsius. GENERAL: This is a well-appearing female lying in bed in no apparent distress. HEENT: Head is atraumatic, normocephalic. Pupils are equal, round, and reactive to light with accommodation bilaterally. Extraocular muscles are intact bilaterally. NEUROLOGIC: There might be very slight facial droop on the right side and borderline weakness in her right hand as compared to her left, but she has normal strength in her feet currently. HEART: S1, S2, regular rate and rhythm. No S3, S4, murmurs, gallops, or rubs. LUNGS: Clear to auscultation bilaterally. ABDOMEN: Soft, nontender, nondistended without hepatosplenomegaly or masses. Bowel sounds are active. EXTREMITIES: There is no peripheral edema. LAB/IMAGING: Sodium is 145, potassium 3.6, chloride of 106, bicarbonate 36, BUN of 15, creatinine of 0.9, glucose of 118. White blood cell count 9.7, hemoglobin 12.6, hematocrit 38, platelets 259, calcium 8.4, total protein 6.5, albumin 2.9. Total bilirubin 0.6, alkaline phosphatase of 92, AST of 24, ALT of 24. UA shows trace leukocyte esterase and 2-3 WBCs. INR 2.5. Fibrinogen 489. D-dimer 1.79. CT of the head showed mild old vessel white matter CVA. Chest x-ray showed mild cardiomegaly. CTA of the head showed mild atherosclerosis change of aortic arch; normal right carotid system; Probable motion at the base of the left common carotid, which is otherwise normal, underlying stenosis is less likely, carotid ultrasound could be used to confirm; probable motion at the origin of the left vertebral artery, stenosis is less likely. There is normal vertebrobasilar system. IMPRESSION: This is a 71-year-old female with a recent cerebrovascular accident , presenting to the hospital with symptoms consistent with transient ischemic attack with recurrent transient ischemic attack versus cerebrovascular accident, currently improving. PLAN: 1. Fluids, electrolytes, nutrition: The patient is currently nothing by mouth with minimal ice chips as dysphagia is being questioned. She will have a speech evaluation in the morning. 2. Cardiac: a. The patient has atrial fibrillation is adequately anticoagulated on Coumadin. Apparently, the emergency department physician talked with Neurology at [facility], and [facility] is suggesting no further anticoagulation until she is recovering from her stroke. b. Hypertension: We will currently hold the patient's antihypertensives for the next 24 hours unless her blood pressure gets higher than 180/110. 3. Respiratory: The patient has chronic obstructive pulmonary disease, which is currently asymptomatic. 4. Neurologic: a. The patient claims she has bipolar spectrum disorder for which she takes Lamictal; however, on her medication list it says that she takes it for seizures. We will request further records and need to corroborate information with family and primary care provider. b. The patient with transient ischemic attack versus cerebrovascular accident. We will monitor overnight. The patient does seem to have had an adequate evaluation at [place] and records are in the chart. We will discuss with Neurology about the necessity to add Plavix to current medication regimen. 5. Prophylaxis: a. The patient is currently on sequential compression devices as Neurology has recommended against chemical deep venous thrombosis prophylaxis. b. The patient is also nothing by mouth, so therefore will start gastrointestinal ulcer prophylaxis. 6. CODE STATUS: DO NOT RESUSCITATE. I tried to investigate the patient's POLST (Physicians Orders for Life-Sustaining Treatment) form, which indicates that she is comfort care only. However, the patient was unclear about whether she would be strictly comfort care only or not. I recommend discussing each possible intervention with this patient as to whether she would want it done or not.
--- NOTE | 2016-05-20 22:30 | NUR ---
pt arrived on the floor around 1625. Pt pleasant and cooperative, A&Ox4. No c/o pain, nausea, or SOB. Noted slight L consumer insight manager weakness, but otherwise negative neuro check. Able to side with minimal assist. Pt failed the swallow test, and was placed on NPO with 1/3 of cup of ice chips per shift. aware. Will cont to monitor.
[2016-05-20 23:02] VITALS: BP 137/59
--- NOTE | 2016-05-21 00:08 | NUR ---
TAKEN OVER THIS PATIENT'S CARE. REMAINS ALERT AND ORIENTATED BUT HAD TO BE KEPT NPO TLILL SWALLOW EVAL. DENIES ANY PAIN NOR NAUSEA /VOMITING. KEPT ON 2 HRLY NEURO AX.
[2016-05-21 02:23] VITALS: BP 133/62
[2016-05-21 06:22] VITALS: BP 150/73
--- NOTE | 2016-05-21 07:38 | Progress Note ---
Subjective General Note Date: May 21, 2016 Admission Date: May 20, 2016 Hospital Day: 2 PCP: Richy Rodriguez M.D. Status: Inpatient Advanced Directive: NO CODE Room: 202 Brief History: The patient is a 71-year-old white female with a significant past medical history of atrial fibrillation, chronic anticoagulation, cerebrovascular disease status post CVA, who presented to [facility] emergency department on the day of admission secondary to complaints of altered mental status/TIA. ER evaluation was consistent with possible TIA/CVA. Secondary to the above the patient was admitted by Pat Moran M.D. for further evaluation treatment For other history present illness, past medical history, family history, social history, review of systems, and admission physical examination please see the patient's history and physical examination and ER visit note in the patient's medical record. Subjective: The patient states she is doing well today. All neurological deficits have resolved. Patient up ambulating. Patient wishes discharge at this time. Does not wish to pursue further evaluation. Patient requests: Patient wishes discharge. Does not wish to pursue further evaluation. Medications and Allergies Medications Current Medications Sig/Allie Start time Last Medication Dose Route Stop Time Status Admin Ceftriaxone Sodium/ 50 ML DAILY 05/21 0900 AC Dextrose IV Dextrose/Sodium 1,000 ML ASDIRECTED 05/20 1915 AC 05/20 Chloride/Electrolyt IV 2248 Morphine Sulfate See Dose Q4H PRN 05/20 1400 AC Insts (1) IV Ondansetron HCl 4 MG Q8H PRN 05/20 1400 AC IV Sodium Chloride 1,000 ML ASDIRECTED 05/20 1400 CAN IV Dose Instructions: (1)Morphine Sulfate: 2 - 4 MG Allergies Coded Allergies: Penicillins (Intermediate, Nausea 05/20/16) Physical Exam Vital Signs / I&Os Vital Signs Date Time Temp Pulse Resp B/P Pulse O2 O2 Flow FiO2 Ox Delivery Rate 05/21 0622 98.1 74 18 150/73 91 Room Air 05/21 0400 Room Air 05/21 0223 97.9 82 18 133/62 92 Room Air 05/21 0200 Room Air 05/20 2302 98.1 83 16 137/59 92 Room Air 05/20 1808 98.1 72 16 142/75 94 Room Air 05/20 1636 97.9 76 18 155/87 94 Room Air 05/20 1630 Room Air I&O 05/21 0000 05/20 1600 01/29 0800 Intake Total 449 Output Total 500 Balance -51 General Appearance Alert, Oriented X3, Cooperative, No acute distress Lungs Clear to auscultation Cardiovascular Regular rate and rhythm, Normal S1 and S2 Abdomen Normal bowel sounds, Soft, No tenderness Extremities No cyanosis, No clubbing, No edema Neurological Cranial nerves intact, Strength 5/5 x4 ext's, No lateralizing signs Psych/Mental Status Mental status normal, Mood normal LAB Results Laboratory Tests 05/21 05/20 0505 1056 Chemistry Plasma Sodium (136 - 145 mmol/L) 143 Plasma Potassium (3.5 - 5.1 mmol/L) 3.5 Plasma Chloride (98 - 107 mmol/L) 106 CO2 (Enzymatic) (21 - 32 mmol/L) 31 BUN (7 - 18 mg/dL) 14 Creatinine (0.6 - 1.3 mg/dL) 0.8 Est GFR ( Amer) (mL/min) >60 Est GFR (Non-Af Amer) (mL/min) >60 Glucose (70 - 110 mg/dL) 110 Plasma Calcium (8.5 - 10.1 mg/dL) 8.3 Coagulation INR (0.8 - 1.2) 2.6 Hematology WBC (4.5 - 11.5 K/uL) 7.3 RBC (4.00 - 5.20 M/uL) 4.40 Hgb (12.0 - 16.0 gm/dL) 12.0 Hct (36.0 - 46.0 %) 36.6 MCV (80 - 100 fL) 83 MCH (26 - 34 pg) 27 RDW (11.6 - 14.8 %) 14.9 Neut % (Auto) (50 - 75 %) 61.8 Lymph % (Auto) (25 - 40 %) 25.6 Gregory % (Auto) (3 - 14 %) 8.8 Eos % (Auto) (0 - 4 %) 3.3 Baso % (Auto) (0 - 2 %) 0.5 Plt Count, EDTA (150 - 400 K/uL) 204 PUBS MCHC (31 - 37 g/dL) 33 Urines Urine Color YELLOW Urine Appearance CLEAR Urine pH (5.0 - 8.0) 6.5 Ur Specific [place] (1.010 - 1.030) 1.020 Urine Protein (NEGATIVE) TRACE Urine Ketones (NEGATIVE) NEGATIVE Urine Blood (NEGATIVE) NEGATIVE Urine Nitrite (NEGATIVE) NEGATIVE Urine Bilirubin (NEGATIVE) NEGATIVE Urine Urobilinogen (0.2 - 1.0 EU/dL) 1.0 Ur Leukocyte Esterase (NEGATIVE) TRACE Urine RBC (0 - 1 rbc/hpf) 0-1 Urine WBC (0 - 1 wbc/hpf) 5-10 Ur Epithelial Cells (0 - 5 EPI/hpf) 1-3 Urine Bacteria (NONE SEEN) MODERATE (2+ TO 3+) Urine Glucose (NEGATIVE) NEGATIVE Urine Comment CULTURE INDICATED 05/20 1038 Chemistry Plasma Sodium (136 - 145 mmol/L) 145 Plasma Potassium (3.5 - 5.1 mmol/L) 3.6 Plasma Chloride (98 - 107 mmol/L) 106 CO2 (Enzymatic) (21 - 32 mmol/L) 32 BUN (7 - 18 mg/dL) 15 Creatinine (0.6 - 1.3 mg/dL) 0.9 Est GFR ( Amer) (mL/min) >60 Est GFR (Non-Af Amer) (mL/min) >60 Glucose (70 - 110 mg/dL) 118 Plasma Calcium (8.5 - 10.1 mg/dL) 8.4 Total Bilirubin (0.0 - 1.0 mg/dL) 0.6 AST (15 - 37 U/L) 24 ALT (12 - 78 U/L) 24 Alkaline Phosphatase (46 - 116 U/L) 92 Total Protein (6.4 - 8.2 g/dL) 6.5 Albumin (3.3 - 5.0 g/dL) 2.9 Coagulation INR (0.8 - 1.2) 2.5 APTT (24 - 34 SECONDS) 54 Fibrinogen (193 - 455 mg/dL) 489 D-Dimer, Quantitative (0.27 - 0.52 ug/mLFEU) 1.79 Hematology WBC (4.5 - 11.5 K/uL) 9.7 RBC (4.00 - 5.20 M/uL) 4.62 Hgb (12.0 - 16.0 gm/dL) 12.6 Hct (36.0 - 46.0 %) 38.0 MCV (80 - 100 fL) 82 MCH (26 - 34 pg) 27 RDW (11.6 - 14.8 %) 15.4 Neut % (Auto) (50 - 75 %) 74.4 Lymph % (Auto) (25 - 40 %) 16.2 Gregory % (Auto) (3 - 14 %) 6.5 Eos % (Auto) (0 - 4 %) 2.6 Baso % (Auto) (0 - 2 %) 0.3 Plt Count, EDTA (150 - 400 K/uL) 259 PUBS MCHC (31 - 37 g/dL) 33 Microbiology Date/Time Procedure - Status Source Growth 05/20 1056 Urine Culture - RECD URINE CATH Assessment and Plan Problem List 1. Cerebrovascular accident (CVA) involving left middle cerebral artery territory Plan -Status stable, neurological status at baseline status post CVA -Discharged to correction [id number] Dr. Rodriguez -Patient does not pursue any further evaluation -Ongoing rehabilitation 2. UTI (urinary tract infection) Status Acute Onset Date Unknown Plan -Patient with findings of UTI -Discharge today with Keflex 500 mg by mouth 3 times a day -Outpatient follow-up with Dr. Rodriguez 3. Chronic anticoagulation Status Chronic Onset Date Unknown Plan -Patient on chronic anticoagulation -INR therapeutic at 2.6 -Continue present therapy, repeat INR [address] Rodriguez 4. Hypertension Status Chronic Onset Date Unknown Plan -Much improved -Discharge today -Outpatient follow-up with Dr. Rodriguez 5. Altered mental status, unspecified Plan -Resolved -Outpatient follow-up Dr. Rodriguez 6. Atrial fibrillation Status Chronic Onset Date Unknown Plan -Stable -Continue anticoagulation -Outpatient follow-up with Dr. Rodriguez -Continue Lopressor, lisinopril Current status: Fair, improved Anticipated discharge date: Today Anticipated discharge placement: group home facility-DNR/DNI status. Comfort measures only. Patient care time: Time spent in chart review, patient interview, physical exam, CPOE, and care documentation: 30 minutes Visit to patient today: 2 Complexity of care: Moderate For other recommendations regarding discharge diet, activity, followup, and discharge medications please see the patient's discharge instructions. Greater than 30 min. was spent in the patient's discharge preparation including discharge interview and physical examination, progress note, discharge instructions, and discharge summary E&M Codes Discharge: Inpt >30 min spent/[id number]
--- NOTE | 2016-05-21 10:05 | NUR ---
NUTRITION ASSESSMENT: Pt admitted with dx/o CVA, HTN, COPD, A-fib, bipolar disorder. Pt is currently NPO and awaiting swallow evaluation 2/2 suspected dysphagia. Diet Rx: NPO NKFA Wts: 108.3 kg Ht: 66" BMI: 38.7 IBW: 52-66 kg ABW: ~79 kg Est Kcals: ~9487-1967 kcals per day Est Fluids: ~2.4 L per day (or per MD) Est Pro: ~80-95 g per day Meds Incl: IVFs, see eMar for complete list. Labs Incl: (05/21) glucose 110, BUN 14, Creat 0.8, Na+ 143, K+ 3.5, Ca+ 8.3, HGB 12.0, HCT 36.3, albumin 2.9, Total pro 6.5 Skin: Giuseppe 12; skin fragile. waffle overlay in place. A: Pt scheduled for swallow evaluation this afternoon. NPO. Rev'd meds and labs. Skin fragile. RD to await results/diet order. P: Swallow eval today
--- NOTE | 2016-05-21 10:13 | ED MAR SUMMARY ---
..... Medication Administration Record [facility] [address] [place] [address] Patient: TIRSO MELTON Visit ID: [id number] 71y, F Weight: 110.3 kg Height/Length: 66 in BMI: 39.3 ALLERGIES: Penicillins Given 09:56 05/20/2016 Maryann Mckoy RAlex. Medication Administered: ATIVAN [IVP] (LORAZEPAM), Dose: 1 mg IVP over 1 minute(s), Site: #1. Medication Ordered: Ativan IV 1 mg (HIGH ALERT MEDICATION, NOW). Given 09:57 05/20/2016 Maryann Mckoy RAlex. Medication Administered: ZOFRAN [IVP] (ONDANSETRON HCL), Dose: 4 mg IVP over 1 minute(s), Site: #1. Medication Ordered: Zofran IV 4 mg (NOW). Start 11:45 05/20/2016 Maryann Mckoy, RArnoldoN., Stop 12:02 05/20/2016 Remberto Hogue RIsrael Medication Administered: CEFTRIAXONE [IVPB], Dose: 1 gm IVPB over 20 minute(s), Rate: 150 mL/hr, Dispensed: 50 mL bag, Site: #2 right forearm. Medication Ordered: Ceftriaxone IV 1 gm/50mL (NOW).
--- NOTE | 2016-05-21 10:13 | ED MED RECONCILIATION SUMMARY ---
Patient: TIRSO MELTON Medication Reconciliation Report [facility] VisitID: [id number] [address] [place] [address] 71y, F Registration Date/Time: 05/20/2016 Weight: 110.3 kg Height/Length: 66 in. BMI: 39.3 ALLERGIES: Penicillins The patient's Home Medications are listed below: THE FOLLOWING MEDICATIONS NEED TO BE RECONCILED: Atorvastatin Calcium Oral (80 mg) 1 tablet, at bedtime Citalopram Hydrobromide Oral (20 mg) 1 tablet, daily Coumadin Oral (2 mg) 4.5mg, daily Dulcolax Oral Gabapentin Oral (300 mg) 1 capsule, 3x a day Elizabeth-Lanta Oral, prn LamoTRIgine Oral (200 mg) 1 tablet, at HS LamoTRIgine Oral (100 mg) 3 tablets, daily Lisinopril Oral (5 mg), daily Metoprolol Tartrate Oral (100 mg) 1 tablet, BID Milk of Magnesia Oral Senna Oral Tylenol Oral The source(s) of the original Home Medication information: Not obtained. The following Medications were given to the patient in the Emergency Department: Ativan [IVP] IVP 1 mg, administered: 05/20/2016 9:56:00 AM Zofran [IVP] IVP 4 mg, administered: 05/20/2016 9:57:00 AM Ceftriaxone [IVPB] IVPB bolus 0, then 1 gm 150 mL/hr, administered: 05/20/2016 11:45:00 AM The following Medications were prescribed to the patient: None.
--- NOTE | 2016-05-21 10:13 | ED MAR SUMMARY ---
..... Medication Administration Record [facility] [address] [place] [address] Patient: TIRSO MELTON Visit ID: [id number] 71y, F Weight: 110.3 kg Height/Length: 66 in BMI: 39.3 ALLERGIES: Penicillins Given 09:56 05/20/2016 Maryann Mckoy RAlex. Medication Administered: ATIVAN [IVP] (LORAZEPAM), Dose: 1 mg IVP over 1 minute(s), Site: #1. Medication Ordered: Ativan IV 1 mg (HIGH ALERT MEDICATION, NOW). Given 09:57 05/20/2016 Maryann Mckoy RAlex. Medication Administered: ZOFRAN [IVP] (ONDANSETRON HCL), Dose: 4 mg IVP over 1 minute(s), Site: #1. Medication Ordered: Zofran IV 4 mg (NOW). Start 11:45 05/20/2016 Maryann Mckoy, RArnoldoN., Stop 12:02 05/20/2016 Remberto Hogue RIsrael Medication Administered: CEFTRIAXONE [IVPB], Dose: 1 gm IVPB over 20 minute(s), Rate: 150 mL/hr, Dispensed: 50 mL bag, Site: #2 right forearm. Medication Ordered: Ceftriaxone IV 1 gm/50mL (NOW).
--- NOTE | 2016-05-21 10:13 | ED MED RECONCILIATION SUMMARY ---
Patient: TIRSO MELTON Medication Reconciliation Report [facility] VisitID: [id number] [address] [place] [address] 71y, F Registration Date/Time: 05/20/2016 Weight: 110.3 kg Height/Length: 66 in. BMI: 39.3 ALLERGIES: Penicillins The patient's Home Medications are listed below: THE FOLLOWING MEDICATIONS NEED TO BE RECONCILED: Atorvastatin Calcium Oral (80 mg) 1 tablet, at bedtime Citalopram Hydrobromide Oral (20 mg) 1 tablet, daily Coumadin Oral (2 mg) 4.5mg, daily Dulcolax Oral Gabapentin Oral (300 mg) 1 capsule, 3x a day Elizabeth-Lanta Oral, prn LamoTRIgine Oral (200 mg) 1 tablet, at HS LamoTRIgine Oral (100 mg) 3 tablets, daily Lisinopril Oral (5 mg), daily Metoprolol Tartrate Oral (100 mg) 1 tablet, BID Milk of Magnesia Oral Senna Oral Tylenol Oral The source(s) of the original Home Medication information: Not obtained. The following Medications were given to the patient in the Emergency Department: Ativan [IVP] IVP 1 mg, administered: 05/20/2016 9:56:00 AM Zofran [IVP] IVP 4 mg, administered: 05/20/2016 9:57:00 AM Ceftriaxone [IVPB] IVPB bolus 0, then 1 gm 150 mL/hr, administered: 05/20/2016 11:45:00 AM The following Medications were prescribed to the patient: None.
[2016-05-21 10:47] VITALS: BP 152/75
[2016-05-21 14:25] VITALS: BP 151/59
[2016-05-21] MEDS ORDERED: KEFLEX500 M1 PO (15:38)
--- NOTE | 2016-05-21 15:41 | Provider's Discharge Care Plan ---
Problem, Goal, Plan Problem List 1. Chronic anticoagulation Instructions: Follow up as directed, Take meds as directed, Recheck protime/ INR in two days. Call results to Dr. Rodriguez. 2. UTI (urinary tract infection) Goals: Improve disease control, Prevent disease progress Instructions: Follow up as directed, Take meds as directed, Recheck urine UA, C&S two days after finishing antibiotics. 3. Cerebrovascular accident (CVA) involving left middle cerebral artery territory Goals: Improve disease control, Improve function, Improved health/wellness, Prevent disease progress Instructions: Follow up as directed, Take meds as directed
--- NOTE | 2016-05-21 16:11 | Discharge Summary ---
Discharge Summary Report Admit Date 05/20/16 Discharge Date 05/21/16 Admission Diagnosis 1. Altered mental status-rule out TIA/CVA 2. Hypertension 3. Atrial fibrillation 4. Chronic anticoagulation 5. UTI Discharge Diagnosis 1. Altered mental status-rule out CVA ruled out 2. Hypertension 3. Atrial fibrillation 4. Chronic anticoagulation 5. UTI Brief History The patient is a 71-year-old white female with a significant past medical history of atrial fibrillation, chronic anticoagulation, cerebrovascular disease status post CVA, who presented to [facility] emergency department on the day of admission secondary to complaints of altered mental status/TIA. ER evaluation was consistent with possible TIA/CVA. Secondary to the above the patient was admitted by Pat Moran M.D. for further evaluation treatment For other history present illness, past medical history, family history, social history, review of systems, and admission physical examination please see the patient's history and physical examination and ER visit note in the patient's medical record. Hospital Course The following problems and their management were noted during the patient's hospitalization: 1. Altered mental status-rule out CVA ruled out The patient presented with history of altered mental status with no clear focal neurological deficits new from previous CVA. Her symptoms resolved rapidly. On the day of discharge patient was alert with normal mental status and no new focal neurological deficits. No clear etiology of presenting symptoms. The patient has had extensive workup at [facility] during previous hospitalization. CT of head was unremarkable with no new findings. No findings of acute CVA. The patient did not wash to pursue any further evaluation. Wish to be discharged with comfort measures only per POLST form. She was discharged back to senior living facility under care of Dr. Richy Rodriguez/neurology. Status much improved 2. Hypertension Well-controlled on discharge. Continue medical regimen per discharge instructions. Low-salt diet. 3. Atrial fibrillation Well-controlled. Continue anticoagulation. Previous workup noted at [facility]. Follow-up with Dr. Rodriguez. 4. Chronic anticoagulation Patient with chronic anticoagulation. INR 2.6 on discharge. Repeat INR in 2 days. Follow-up with Dr. Rodriguez. 5. UTI Patient with findings of UTI with Escherichia coli sensitive to Keflex. Patient discharged on Keflex 500 mg by mouth 3 times a day. Outpatient follow-up with Dr. Rodriguez. Discharge Instructions/Meds For other recommendations regarding discharge diet, activity, followup, and discharge medications please see the patient's discharge instructions. Discharge condition: Fair, improved Greater than 30 min. was spent in the patient's discharge preparation including discharge interview and physical examination, progress note, discharge instructions, and discharge summary The patient was interviewed and examined on the day of discharge. Patient wishes discharge on comfort measures-DNR/DNI status. E&M Codes Discharge: Inpt >30 min spent/[id number]
--- NOTE | 2016-05-21 16:11 | Discharge Summary ---
Discharge Summary Report Admit Date 05/20/16 Discharge Date 05/21/16 Admission Diagnosis 1. Altered mental status-rule out TIA/CVA 2. Hypertension 3. Atrial fibrillation 4. Chronic anticoagulation 5. UTI Discharge Diagnosis 1. Altered mental status-rule out CVA ruled out 2. Hypertension 3. Atrial fibrillation 4. Chronic anticoagulation 5. UTI Brief History The patient is a 71-year-old white female with a significant past medical history of atrial fibrillation, chronic anticoagulation, cerebrovascular disease status post CVA, who presented to [facility] emergency department on the day of admission secondary to complaints of altered mental status/TIA. ER evaluation was consistent with possible TIA/CVA. Secondary to the above the patient was admitted by Pat Moran M.D. for further evaluation treatment For other history present illness, past medical history, family history, social history, review of systems, and admission physical examination please see the patient's history and physical examination and ER visit note in the patient's medical record. Hospital Course The following problems and their management were noted during the patient's hospitalization: 1. Altered mental status-rule out CVA ruled out The patient presented with history of altered mental status with no clear focal neurological deficits new from previous CVA. Her symptoms resolved rapidly. On the day of discharge patient was alert with normal mental status and no new focal neurological deficits. No clear etiology of presenting symptoms. The patient has had extensive workup at [facility] during previous hospitalization. CT of head was unremarkable with no new findings. No findings of acute CVA. The patient did not wash to pursue any further evaluation. Wish to be discharged with comfort measures only per POLST form. She was discharged back to [facility] facility under care of Dr. Richy Rodriguez/neurology. Status much improved 2. Hypertension Well-controlled on discharge. Continue medical regimen per discharge instructions. Low-salt diet. 3. Atrial fibrillation Well-controlled. Continue anticoagulation. Previous workup noted at [facility]. Follow-up with Dr. Rodriguez. 4. Chronic anticoagulation Patient with chronic anticoagulation. INR 2.6 on discharge. Repeat INR in 2 days. Follow-up with Dr. Rodriguez. 5. UTI Patient with findings of UTI with Escherichia coli sensitive to Keflex. Patient discharged on Keflex 500 mg by mouth 3 times a day. Outpatient follow-up with Dr. Rodriguez. Discharge Instructions/Meds For other recommendations regarding discharge diet, activity, followup, and discharge medications please see the patient's discharge instructions. Discharge condition: Fair, improved Greater than 30 min. was spent in the patient's discharge preparation including discharge interview and physical examination, progress note, discharge instructions, and discharge summary The patient was interviewed and examined on the day of discharge. Patient wishes discharge on comfort measures-DNR/DNI status. E&M Codes Discharge: Inpt >30 min spent/[id number]
--- NOTE | 2016-05-21 17:57 | NUR ---
PT IS A&OX3, LS CTA AND BT ACTIVE. NO C/O PAIN OR NAUSEA. QUESTIONS AND CONERNS ADDRESSED AND ANSWERED W/ PT AND FAMILY. REPORT CALLED TO [facility] AND GIVEN TO MARIA EUGENIA. RX'S DISCUSSED W/ PT. DC'D AT 1745 VIA W/ USER INTERFACE DESIGNER AND FAMILY AT SIDE.
== END 2016-05-21 17:40 | DRG 65 ==
LOC: ED SRH 09:43 → TRANS SRH 14:21 → ACUTE2 SRH 16:10
PROVIDERS: ADMIT Family Medicine
DX: I63.512 Cerebral infarction due to unspecified occlusion or stenosis of left middle cerebral artery (principal); I69.351 Hemiplegia and hemiparesis following cerebral infarction affecting right dominant side; N39.0 Urinary tract infection, site not specified; R47.1 Dysarthria and anarthria; R29.810 Facial weakness; I10 Essential (primary) hypertension; R29.715 NIHSS score 15; I48.91 Unspecified atrial fibrillation; J44.9 Chronic obstructive pulmonary disease, unspecified; Z79.01 Long term (current) use of anticoagulants

== ENCOUNTER 2016-06-04 09:56 | Inpatient (IN) | payer OTHER ==
[~2016-06-04] VITALS: Ht 165.1 cm; Wt 105.7 kg
[~2016-06-04 09:56] MED LIST: ACETAMINOPHEN325 MG PO; ALOPHEN5 MG PR; CITALOPRAM HYDR20 MG PO; COUMADIN4 MG PO; KEFLEX500 M1 PO; LAMICTAL ODT200 MG PO; LAMOTRIGINE100 MG PO; LIPITOR80 MG PO; LOPRESSOR50 MG PO; MILK OF MAGNESI10 ML PO; MYLANT1 PO; NEURONTIN300 MG PO; PRINIVIL5 MG PO; SENNA-LAX8.6 MG PO
--- NOTE | 2016-06-04 13:11 | ED ORDER SUMMARY ---
..... Patient: TIRSO MELTON OrderSheet [facility] VisitID: [id number] [address] [place] [address] 71y, F Registration Date/Time: 06/04/2016 ORDER SHEET Weight: 114.7 kg (stated) Allergies: Penicillins GENERAL ORDERS: Shove Up (Continuous) (10:06/04/2016 ) (Ack 10:17 JBoardley R.N.) (10:38 JBoardley R.N.) UA-Culture if indicated Urgent (10:06/04/2016 ) (Ack 10:14 LTapper) (11:01 JBoardley R.N.) Cardiac Panel Stat (10:06/04/2016) (Ack 10:14 LTapper) (10:38 JBoardley R.N.) BNP Urgent (10:06/04/2016) (Ack 10:14 LTapper) (10:38 JBoardley R.N.) Amylase Urgent (10:06/04/2016 ) (Ack 10:14 LTapper) (10:38 JBoardley R.N.) TSH Urgent (10:06/04/2016) (Ack 10:14 LTapper) (10:38 JBoardley R.N.) Urine Drug Screen Urgent (10:06/04/2016) (Ack 10:14 LTapper) (11:01 JBoardley R.N.) Pulse oximeter (10:06/04/2016 ) (Ack 10:17 JBoardley R.N.) (10:38 JBoardley R.N.) EKG - ER Stat (10:06/04/2016 ) (Ack 10:13 LTapper) (11:07 RKaruga) Vitals (10:06/04/2016 [facility]) (10:14 LTapper) PT with INR Urgent (10:06/04/2016 [facility]) (Ack 10:14 LTapper) (10:38 Nagay R.N.) Old Records (need old ecg and POLST form) (10:31 06/04/2016 [facility]) (11:51 LTapper) Call (Place call to): (Dr Rodriguez) (11:35 06/04/2016 [facility]) (11:51 LTapper) MEDICATION ORDERS: ZyPREXA Zydis ODT PO 5 mg (NOW) (10:12 06/04/2016 [facility]) (Ack 10:17 JUDIoardley R.N.) (10:29 Bethdley R.N.) IV FLUIDS: IV NS : initial bolus 500 mL (1000 mL/hr), then 250 mL/hr for X2 (NOW) (10:05 06/04/2016 [facility]) (Ack 10:17 JBoardley R.N.) (10:38 JUDIoardley R.N.) Ceftriaxone IV 1 gm/50mL (NOW) (11:40 06/04/2016 [facility]) (11:57 DMaziarka R.N.) ORDER SHEET NOTES: [Electronically signed by Miguel A Tineo R.N. (14:44 06/04/2016)] [Electronically signed by Arias May DO (20:54 06/04/2016)] [Electronically locked/signed by Miguel A Tineo R.N. (14:44 06/04/2016)]
--- NOTE | 2016-06-04 13:11 | ED CLINICAL REPORT ---
Clinical Report - Physicians/Mid Levels [place] [address] [place] [address] 06/04/2016 9:56 Patient: TIRSO MELTON Time Seen: 09:59. Arrived- By ambulance. Historian- EMS personnel. HISTORY OF PRESENT ILLNESS Chief Complaint: ANXIOUS, DEPRESSED and BEHAVIOR CHANGE. This started today. The patient has experienced situational problems related to health and exhibited a behavior change. (recently admitted to [facility] with a diagnosis of a stroke, currently in rehabilitation, recovering from that stroke, who had an altered mental status today. She was recently hospitalized at [facility] after a similar episode By report of her provider at [facility] (Dr Rodriguez), pt was recently started on Remeron). No recent drug use or alcohol consumption. The patient has had anxiety and delusions. Has been depressed and exhibited unusual behavior. No suicidal thoughts, self-injury inflicted or hallucinations. The symptoms are described as moderate. No injury is present. CODE STATUS: DO NOT RESUSCITATE with Comfort Measures Only (signed 05/16/2016). Similar symptoms previously: Recent medical care: The patient was seen recently by a health care provider. REVIEW OF SYSTEMS No headache, dizziness, weakness, chest pain or palpitations. No vomiting, diarrhea, numbness, fever or sore throat. No cough, difficulty breathing, urinary frequency, skin rash or enlarged lymph nodes. No laceration. The patient has had mild, crampy, intermittent abdominal pain. The pain is described as located in the left side of the abdomen. She has had joint pain. Has had similar previous symptoms of joint pain. All systems otherwise negative, except as recorded above. PAST HISTORY ( PCP: Dr Griffin PROBLEMS: Weakness. Atrial Fibrillation. Syncope. Hypercapnia. Respiratory Failure. Fall. Polyneuropathy. Morbid obesity. Major depressive disorder. Hyperlipidemia. Dysphagia. Hemiparesis. Hemiplegia. CVA - Cerebrovascular Accident. Nausea. Abdominal Pain. Neuropathy. COPD - Chronic Obstructive Pulmonary Disease. Depression . Htn MEDICAL/SURGICAL HISTORY: Past medical history: 1. Hypertension. 2. Chronic obstructive pulmonary disease. 3. Atrial fibrillation. 4. Bipolar spectrum disorder. 5. CVA, 04/2016. Past surgical history: Partial colectomy secondary to diverticulosis.). Medications: Atorvastatin Calcium Oral (Tablet 80 mg) 1 tablet, at bedtime. Citalopram Hydrobromide Oral (Tablet 20 mg) 1 tablet, daily. Coumadin Oral (Tablet 2 mg), daily (4.5mg ). Dulcolax Oral, as needed. Gabapentin Oral (Capsule 300 mg) 1 capsule, 3x a day. Elizabeth-Lanta Oral (prn). LamoTRIgine Oral (Tablet Dispersible 200 mg) 1 tablet, at HS. LamoTRIgine Oral (Tablet Dispersible 100 mg) 3 tablets, daily. Lisinopril Oral (Tablet 5 mg), daily. Metoprolol Tartrate Oral (Tablet 100 mg) 1 tablet, BID. Milk of Magnesia Oral. Senna Oral, as needed. Tylenol Oral, as needed. Allergies: Penicillins. SOCIAL HISTORY Is a local resident. Resides in a assisted. Has place to stay (assisted). FAMILY HISTORY Her grandfather had a heart attack in his 60s. Her grandmother of old age. Her mother of an unknown type of cancer. Her father of leukemia. ADDITIONAL NOTES The nursing notes have been reviewed. PHYSICAL EXAM Vital Signs: 06/04/2016 10:00 BP: 107/94. HR: 110. RR: 16. O2 saturation: 96%. Temp: 98.3 F. Appearance: Alert. Patient is in mild distress. Patient is cooperative. Anxious. Eyes: Pupils equal, round and reactive to light. No scleral icterus. ENT: The mucous membranes are not dry. Neck: Normal inspection. Neck supple. CVS: Tachycardia. Heart sounds normal. Respiratory: Breath sounds normal. Chest nontender. Abdomen: Soft. Mild tenderness in the left upper quadrant and left side of the abdomen. No guarding or rebound tenderness. Back: No tenderness. Skin: Skin warm and dry. Normal skin color. Normal skin turgor. Extremities: Extremities exhibit normal ROM. No calf tenderness. Psych / Neuro: Cranial nerves normal (as tested). No motor deficit. No sensory deficit. Reflexes normal. LABS, X-RAYS, AND EKG EKG: EKG time: (10:53). Atrial fibrillation (ventricular rate 95). Non-specific ST segment / T wave abnormalities. EKG unchanged when compared with prior EKG. (no change vs 18 OCT 2016). The study has been interpreted contemporaneously by me. The EKG appears to be a good tracing. Rhythm Strip #1: Atrial fibrillation (narrow-complex) (ventricular rate 90 - 110). Laboratory Tests: UA-Culture if indicated: (ELIER: 06/04/2016 10:46) ( [facility]22) Final results Test Result Flag Units (Reference) URINE COLOR KAN URINE APPEARANCE CLOUDY URINE GLUCOSE NEGATIVE (NEGATIVE) URINE BILIRUBIN NEGATIVE (NEGATIVE) URINE KETONE NEGATIVE (NEGATIVE) URINE SPECIFIC GRAVITY 1.025 (1.010-1.030) URINE PH 6.0 (5.0-8.0) URINE PROTEIN NEGATIVE (NEGATIVE) URINE UROBILINOGEN 0.2 EU/dL (0.2-1.0) URINE NITRITE POSITIVE (NEGATIVE) URINE BLOOD 1+ (NEGATIVE) URINE LEUK ESTERASE POSITIVE (NEGATIVE) URINE RBC 1-3 rbc/hpf (0-1) URINE WBC >100 wbc/hpf (0-1) URINE EPITHELIAL CELLS RARE EPI/hpf (0-5) URINE BACTERIA MANY (4+) (NONE SEEN) URINE COMMENT CULTURE INDICATED URINE CULTURES ARE SET-UP BASED ON THE FOLLOWING CRITERIA:POSITIVE NITRITEPOSITIVE LEUKOCYTE ESTERASEGREATER THAN 10 WHITE BLOOD CELLSMODERATE (2+) OR GREATER BACTERIA CBC w Diff: (ELIER: 06/04/2016 10:35) ( [facility]04[facility] 10:54) Final results Test Result Flag Units (Reference) WHITE BLOOD COUNT 7.6 K/uL (4.5-11.5) RED BLOOD COUNT 4.93 M/uL (4.00-5.20) HEMOGLOBIN 13.3 gm/dL (12.0-16.0) HEMATOCRIT 41.0 % (36.0-46.0) MEAN CELL VOLUME 83 fL (80-100) MEAN CORPUSCULAR HGB 27 pg (26-34) MEAN CORPUSCULAR HGB CONC 33 g/dL (31-37) RED CELL DISTRIBUTION WIDTH 16.0 H % (11.6-14.8) PLATELET COUNT 259 K/uL (150-400) NEUTROPHIL % 69.3 % (50-75) LYMPH % 23.5 L % (25-40) MONO % 6.5 % (3-14) EOSINOPHIL % 0.6 % (0-4) BASOPHIL % 0.1 % (0-2) PT with INR: (ELIER: 06/04/2016 10:35) ( [facility] 06/04/2016 10:56) Final results Test Result Flag Units (Reference) INR 2.1 H (0.8-1.2) Low Intensity Therapy: INR 1.5-2.0 PT range 18.5-23.1Mod.Intensity Therapy: INR 2.0-3.0 PT range 23.1-31.5High Intensity Therapy: INR 2.5-3.5 PT range 27.4-35.5High Intensity Therapy 2: INR 3.0-4.0 PT range 31.5-39.3 Urine Drug Screen: (ELIER: 06/04/2016 10:46) ( [facility] 06/04/2016 11:54) Final results Test Result Flag Units (Reference) AMPHETAMINE/METHAMPHETAMINE NEGATIVE (NEGATIVE) BARBITURATE NEGATIVE (NEGATIVE) BENZODIAZEPINE NEGATIVE (NEGATIVE) CANNABINOID NEGATIVE (NEGATIVE) COCAINE NEGATIVE (NEGATIVE) ECSTASY NEGATIVE (NEGATIVE) METHADONE NEGATIVE (NEGATIVE) OPIATE NEGATIVE (NEGATIVE) The urine drug screen is a qualitative screening test fordrug overdose and abuse. All screen results should beconsidered as presumptive.Drugs screened for are as follows:BenzodiazepinesCocaineAmphetamines/MetamphetaminesTHC (Tetrahydrocannabinol)OpiatesBarbituratesEcstasyMethadonePositive results are unconfirmed. For confirmation, notifythe lab for the specimen to be sent to the reference lab.All confirmations must be performed by a differentmethodology.The ingestion of natural herbal and plant productscontaining Ephedra/Ephedra metabolites can produce in urineone or more substances capable of cross reacting withamphetamine/methamphetamine immunoassays. These testsprovide a preliminary result only. A more specificalternative chemical method must be used to obtain aconfirmed analytical result. BNP: (ELIER: 06/04/2016 10:35) ( [facility] 11:20) Final results Test Result Flag Units (Reference) B-TYPE NATRIURETIC PEPTIDE 79.9 pg/ml (5-100) Amylase: (ELIER: 06/04/2016 10:05) ( [facility] 06/04/2016 11:41) Final results Test Result Flag Units (Reference) AMYLASE 55 U/L (25-115) THYROID STIMULATING HORMONE 0.593 uIU/mL (0.30-3.74) CHEM 13 PANEL: (ELIER: 06/04/2016 10:35) ( [facility] 06/04/2016 11:17) Final results Test Result Flag Units (Reference) GLUCOSE 158 H mg/dL (70-110) BUN 21 H mg/dL (7-18) CREATININE 0.9 mg/dL (0.6-1.3) Estimated GFR >60 mL/min Estimated GFR- >60 mL/min Note: Persistent reduction over 3 months in eGFR<60 mL/min/1.73 m2 defines CKD. Patients with eGFR values>=60 mL/min/1.73 m2 may also have CKD if evidence ofpersistent proteinuria. Additional information may be foundat www.kidney.org. SODIUM 142 mmol/L (136-145) POTASSIUM 4.1 mmol/L (3.5-5.1) CHLORIDE 103 mmol/L (98-107) CARBON DIOXIDE 31 mmol/L (21-32) CALCIUM 9.7 mg/dL (8.5-10.1) TOTAL PROTEIN 7.6 g/dL (6.4-8.2) ALBUMIN 3.4 g/dL (3.3-5.0) BILIRUBIN, TOTAL 0.6 mg/dL (0.0-1.0) ALKALINE PHOSPHATASE 114 U/L (46-116) AST (SGOT) 29 U/L (15-37) ALT (SGPT) 24 U/L (12-78) MAGNESIUM 1.8 mg/dL (1.8-2.4) CPK 121 U/L (24-260) TROPONIN I <0.05 L ng/mL (0.00-1.5) TROPONIN REFERENCE RANGE:<0.1 NEGATIVE0.1-1.5 INDETERMINANT>1.5 POSITIVE . Pulse Oximetry: 06/04/2016 10:00 O2 saturation: 96%. (FIO2 - room air). Interpretation: normal. PROGRESS AND PROCEDURES Course of Care: Zyprexa 5 mg ODT PO given. Pt with UTI and altered mental status and [facility] staff does not feel that she can be managed at their facility. She will be admitted. Pt with longstanding bipolar disorder. No new / focal neurologic deficits now. Discussed case with patient's primary care provider, (Constantineamerico call placed 11:40). Reviewed test results. Agreed upon treatment plan. Refers case to other health care provider. Discussed case with hospitalist, (Khanh). Reviewed test results. Agreed upon treatment plan. Patient/family counseled. Old ED and inpatient records reviewed. Transition orders written. Disposition: Admitted to Acute Care. Condition: stable and improved. CLINICAL IMPRESSION Acute mental status change with confusion. Acute urinary tract infection with cystitis. (Electronically signed by Arias May DO 06/04/2016 20:54)
--- NOTE | 2016-06-04 13:11 | ED ORDER SUMMARY ---
..... Patient: TIRSO MELTON OrderSheet [facility] VisitID: [id number] [address] [place] [address] 71y, F Registration Date/Time: 06/04/2016 ORDER SHEET Weight: 114.7 kg (stated) Allergies: Penicillins GENERAL ORDERS: Sound Equipment Mechanic (Continuous) (10:06/04/2016 ) (Ack 10:17 JBoardley R.N.) (10:38 JBoardley R.N.) UA-Culture if indicated Urgent (10:06/04/2016 ) (Ack 10:14 LTapper) (11:01 JBoardley R.N.) Cardiac Panel Stat (10:06/04/2016) (Ack 10:14 LTapper) (10:38 JBoardley R.N.) BNP Urgent (10:06/04/2016) (Ack 10:14 LTapper) (10:38 JBoardley R.N.) Amylase Urgent (10:06/04/2016 ) (Ack 10:14 LTapper) (10:38 JBoardley R.N.) TSH Urgent (10:06/04/2016) (Ack 10:14 LTapper) (10:38 JBoardley R.N.) Urine Drug Screen Urgent (10:06/04/2016) (Ack 10:14 LTapper) (11:01 JBoardley R.N.) Pulse oximeter (10:06/04/2016 ) (Ack 10:17 JBoardley R.N.) (10:38 JBoardley R.N.) EKG - ER Stat (10:06/04/2016 ) (Ack 10:13 LTapper) (11:07 RKaruga) Vitals (10:06/04/2016 [facility]) (10:14 LTapper) PT with INR Urgent (10:06/04/2016 [facility]) (Ack 10:14 LTapper) (10:38 Nagay R.N.) Old Records (need old ecg and POLST form) (10:31 06/04/2016 [facility]) (11:51 LTapper) Call (Place call to): (Dr Rodriguez) (11:35 06/04/2016 [facility]) (11:51 LTapper) MEDICATION ORDERS: ZyPREXA Zydis ODT PO 5 mg (NOW) (10:12 06/04/2016 [facility]) (Ack 10:17 JUDIoardley R.N.) (10:29 Bethdley R.N.) IV FLUIDS: IV NS : initial bolus 500 mL (1000 mL/hr), then 250 mL/hr for X2 (NOW) (10:05 06/04/2016 [facility]) (Ack 10:17 JBoardley R.N.) (10:38 JUDIoardley R.N.) Ceftriaxone IV 1 gm/50mL (NOW) (11:40 06/04/2016 [facility]) (11:57 DMaziarka R.N.) ORDER SHEET NOTES: [Electronically signed by Miguel A Tineo R.N. (14:44 06/04/2016)] [Electronically signed by Arias May DO (20:54 06/04/2016)] [Electronically locked/signed by Miguel A Tineo R.N. (14:44 06/04/2016)]
--- NOTE | 2016-06-04 13:11 | ED CLINICAL REPORT ---
Clinical Report - Physicians/Mid Levels [place] [address] [place] [address] 06/04/2016 9:56 Patient: TIRSO MELTON Time Seen: 09:59. Arrived- By ambulance. Historian- EMS personnel. HISTORY OF PRESENT ILLNESS Chief Complaint: ANXIOUS, DEPRESSED and BEHAVIOR CHANGE. This started today. The patient has experienced situational problems related to health and exhibited a behavior change. (recently admitted to [facility] with a diagnosis of a stroke, currently in rehabilitation, recovering from that stroke, who had an altered mental status today. She was recently hospitalized at [facility] after a similar episode By report of her provider at [facility] (Dr Rodriguez), pt was recently started on Remeron). No recent drug use or alcohol consumption. The patient has had anxiety and delusions. Has been depressed and exhibited unusual behavior. No suicidal thoughts, self-injury inflicted or hallucinations. The symptoms are described as moderate. No injury is present. CODE STATUS: DO NOT RESUSCITATE with Comfort Measures Only (signed 05/16/2016). Similar symptoms previously: Recent medical care: The patient was seen recently by a health care provider. REVIEW OF SYSTEMS No headache, dizziness, weakness, chest pain or palpitations. No vomiting, diarrhea, numbness, fever or sore throat. No cough, difficulty breathing, urinary frequency, skin rash or enlarged lymph nodes. No laceration. The patient has had mild, crampy, intermittent abdominal pain. The pain is described as located in the left side of the abdomen. She has had joint pain. Has had similar previous symptoms of joint pain. All systems otherwise negative, except as recorded above. PAST HISTORY ( PCP: Dr Griffin PROBLEMS: Weakness. Atrial Fibrillation. Syncope. Hypercapnia. Respiratory Failure. Fall. Polyneuropathy. Morbid obesity. Major depressive disorder. Hyperlipidemia. Dysphagia. Hemiparesis. Hemiplegia. CVA - Cerebrovascular Accident. Nausea. Abdominal Pain. Neuropathy. COPD - Chronic Obstructive Pulmonary Disease. Depression . Htn MEDICAL/SURGICAL HISTORY: Past medical history: 1. Hypertension. 2. Chronic obstructive pulmonary disease. 3. Atrial fibrillation. 4. Bipolar spectrum disorder. 5. CVA, 04/2016. Past surgical history: Partial colectomy secondary to diverticulosis.). Medications: Atorvastatin Calcium Oral (Tablet 80 mg) 1 tablet, at bedtime. Citalopram Hydrobromide Oral (Tablet 20 mg) 1 tablet, daily. Coumadin Oral (Tablet 2 mg), daily (4.5mg ). Dulcolax Oral, as needed. Gabapentin Oral (Capsule 300 mg) 1 capsule, 3x a day. Elizabeth-Lanta Oral (prn). LamoTRIgine Oral (Tablet Dispersible 200 mg) 1 tablet, at HS. LamoTRIgine Oral (Tablet Dispersible 100 mg) 3 tablets, daily. Lisinopril Oral (Tablet 5 mg), daily. Metoprolol Tartrate Oral (Tablet 100 mg) 1 tablet, BID. Milk of Magnesia Oral. Senna Oral, as needed. Tylenol Oral, as needed. Allergies: Penicillins. SOCIAL HISTORY Is a local resident. Resides in a senior care. Has place to stay (senior care). FAMILY HISTORY Her grandfather had a heart attack in his 60s. Her grandmother of old age. Her mother of an unknown type of cancer. Her father of leukemia. ADDITIONAL NOTES The nursing notes have been reviewed. PHYSICAL EXAM Vital Signs: 06/04/2016 10:00 BP: 107/94. HR: 110. RR: 16. O2 saturation: 96%. Temp: 98.3 F. Appearance: Alert. Patient is in mild distress. Patient is cooperative. Anxious. Eyes: Pupils equal, round and reactive to light. No scleral icterus. ENT: The mucous membranes are not dry. Neck: Normal inspection. Neck supple. CVS: Tachycardia. Heart sounds normal. Respiratory: Breath sounds normal. Chest nontender. Abdomen: Soft. Mild tenderness in the left upper quadrant and left side of the abdomen. No guarding or rebound tenderness. Back: No tenderness. Skin: Skin warm and dry. Normal skin color. Normal skin turgor. Extremities: Extremities exhibit normal ROM. No calf tenderness. Psych / Neuro: Cranial nerves normal (as tested). No motor deficit. No sensory deficit. Reflexes normal. LABS, X-RAYS, AND EKG EKG: EKG time: (10:53). Atrial fibrillation (ventricular rate 95). Non-specific ST segment / T wave abnormalities. EKG unchanged when compared with prior EKG. (no change vs 18 OCT 2016). The study has been interpreted contemporaneously by me. The EKG appears to be a good tracing. Rhythm Strip #1: Atrial fibrillation (narrow-complex) (ventricular rate 90 - 110). Laboratory Tests: UA-Culture if indicated: (ELIER: 06/04/2016 10:46) ( [facility] 06/04/2016 11:22) Final results Test Result Flag Units (Reference) URINE COLOR KAN URINE APPEARANCE CLOUDY URINE GLUCOSE NEGATIVE (NEGATIVE) URINE BILIRUBIN NEGATIVE (NEGATIVE) URINE KETONE NEGATIVE (NEGATIVE) URINE SPECIFIC GRAVITY 1.025 (1.010-1.030) URINE PH 6.0 (5.0-8.0) URINE PROTEIN NEGATIVE (NEGATIVE) URINE UROBILINOGEN 0.2 EU/dL (0.2-1.0) URINE NITRITE POSITIVE (NEGATIVE) URINE BLOOD 1+ (NEGATIVE) URINE LEUK ESTERASE POSITIVE (NEGATIVE) URINE RBC 1-3 rbc/hpf (0-1) URINE WBC >100 wbc/hpf (0-1) URINE EPITHELIAL CELLS RARE EPI/hpf (0-5) URINE BACTERIA MANY (4+) (NONE SEEN) URINE COMMENT CULTURE INDICATED URINE CULTURES ARE SET-UP BASED ON THE FOLLOWING CRITERIA:POSITIVE NITRITEPOSITIVE LEUKOCYTE ESTERASEGREATER THAN 10 WHITE BLOOD CELLSMODERATE (2+) OR GREATER BACTERIA CBC w Diff: (ELIER: 06/04/2016 10:35) ( [facility]) Final results Test Result Flag Units (Reference) WHITE BLOOD COUNT 7.6 K/uL (4.5-11.5) RED BLOOD COUNT 4.93 M/uL (4.00-5.20) HEMOGLOBIN 13.3 gm/dL (12.0-16.0) HEMATOCRIT 41.0 % (36.0-46.0) MEAN CELL VOLUME 83 fL (80-100) MEAN CORPUSCULAR HGB 27 pg (26-34) MEAN CORPUSCULAR HGB CONC 33 g/dL (31-37) RED CELL DISTRIBUTION WIDTH 16.0 H % (11.6-14.8) PLATELET COUNT 259 K/uL (150-400) NEUTROPHIL % 69.3 % (50-75) LYMPH % 23.5 L % (25-40) MONO % 6.5 % (3-14) EOSINOPHIL % 0.6 % (0-4) BASOPHIL % 0.1 % (0-2) PT with INR: (ELIER: 06/04/2016 10:35) ( [facility] 06/04/2016 10:56) Final results Test Result Flag Units (Reference) INR 2.1 H (0.8-1.2) Low Intensity Therapy: INR 1.5-2.0 PT range 18.5-23.1Mod.Intensity Therapy: INR 2.0-3.0 PT range 23.1-31.5High Intensity Therapy: INR 2.5-3.5 PT range 27.4-35.5High Intensity Therapy 2: INR 3.0-4.0 PT range 31.5-39.3 Urine Drug Screen: (ELIER: 06/04/2016 10:46) ( [facility] 06/04/2016 11:54) Final results Test Result Flag Units (Reference) AMPHETAMINE/METHAMPHETAMINE NEGATIVE (NEGATIVE) BARBITURATE NEGATIVE (NEGATIVE) BENZODIAZEPINE NEGATIVE (NEGATIVE) CANNABINOID NEGATIVE (NEGATIVE) COCAINE NEGATIVE (NEGATIVE) ECSTASY NEGATIVE (NEGATIVE) METHADONE NEGATIVE (NEGATIVE) OPIATE NEGATIVE (NEGATIVE) The urine drug screen is a qualitative screening test fordrug overdose and abuse. All screen results should beconsidered as presumptive.Drugs screened for are as follows:BenzodiazepinesCocaineAmphetamines/MetamphetaminesTHC (Tetrahydrocannabinol)OpiatesBarbituratesEcstasyMethadonePositive results are unconfirmed. For confirmation, notifythe lab for the specimen to be sent to the reference lab.All confirmations must be performed by a differentmethodology.The ingestion of natural herbal and plant productscontaining Ephedra/Ephedra metabolites can produce in urineone or more substances capable of cross reacting withamphetamine/methamphetamine immunoassays. These testsprovide a preliminary result only. A more specificalternative chemical method must be used to obtain aconfirmed analytical result. BNP: (ELIER: 06/04/2016 10:35) ( [facility]) Final results Test Result Flag Units (Reference) B-TYPE NATRIURETIC PEPTIDE 79.9 pg/ml (5-100) Amylase: (ELIER: 06/04/2016 10:05) ( [facility] 11:41) Final results Test Result Flag Units (Reference) AMYLASE 55 U/L (25-115) THYROID STIMULATING HORMONE 0.593 uIU/mL (0.30-3.74) CHEM 13 PANEL: (ELIER: 06/04/2016 10:35) ( [facility] 06/04/2016 11:17) Final results Test Result Flag Units (Reference) GLUCOSE 158 H mg/dL (70-110) BUN 21 H mg/dL (7-18) CREATININE 0.9 mg/dL (0.6-1.3) Estimated GFR >60 mL/min Estimated GFR- >60 mL/min Note: Persistent reduction over 3 months in eGFR<60 mL/min/1.73 m2 defines CKD. Patients with eGFR values>=60 mL/min/1.73 m2 may also have CKD if evidence ofpersistent proteinuria. Additional information may be foundat www.kidney.org. SODIUM 142 mmol/L (136-145) POTASSIUM 4.1 mmol/L (3.5-5.1) CHLORIDE 103 mmol/L (98-107) CARBON DIOXIDE 31 mmol/L (21-32) CALCIUM 9.7 mg/dL (8.5-10.1) TOTAL PROTEIN 7.6 g/dL (6.4-8.2) ALBUMIN 3.4 g/dL (3.3-5.0) BILIRUBIN, TOTAL 0.6 mg/dL (0.0-1.0) ALKALINE PHOSPHATASE 114 U/L (46-116) AST (SGOT) 29 U/L (15-37) ALT (SGPT) 24 U/L (12-78) MAGNESIUM 1.8 mg/dL (1.8-2.4) CPK 121 U/L (24-260) TROPONIN I <0.05 L ng/mL (0.00-1.5) TROPONIN REFERENCE RANGE:<0.1 NEGATIVE0.1-1.5 INDETERMINANT>1.5 POSITIVE . Pulse Oximetry: 06/04/2016 10:00 O2 saturation: 96%. (FIO2 - room air). Interpretation: normal. PROGRESS AND PROCEDURES Course of Care: Zyprexa 5 mg ODT PO given. Pt with UTI and altered mental status and [facility] staff does not feel that she can be managed at their facility. She will be admitted. Pt with longstanding bipolar disorder. No new / focal neurologic deficits now. Discussed case with patient's primary care provider, (Constantineamerico call placed 11:40). Reviewed test results. Agreed upon treatment plan. Refers case to other health care provider. Discussed case with hospitalist, (Khanh). Reviewed test results. Agreed upon treatment plan. Patient/family counseled. Old ED and inpatient records reviewed. Transition orders written. Disposition: Admitted to Acute Care. Condition: stable and improved. CLINICAL IMPRESSION Acute mental status change with confusion. Acute urinary tract infection with cystitis. (Electronically signed by Arias May DO 06/04/2016 20:54)
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
[2016-06-04 15:00] VITALS: BP 98/65
[2016-06-04 18:13] VITALS: BP 173/88
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
--- NOTE | 2016-06-04 20:54 | ED MED RECONCILIATION SUMMARY ---
Patient: TIRSO MELTON Medication Reconciliation Report [facility] VisitID: [id number] [address] [place] [address] 71y, F Registration Date/Time: 06/04/2016 Weight: 114.7 kg Height/Length: 65 in. BMI: 42.1 ALLERGIES: Penicillins The patient's Home Medications are listed below: THE FOLLOWING MEDICATIONS NEED TO BE RECONCILED: Atorvastatin Calcium Oral (80 mg) 1 tablet, at bedtime Citalopram Hydrobromide Oral (20 mg) 1 tablet, daily Coumadin Oral (2 mg), daily, 4.5mg Dulcolax Oral Gabapentin Oral (300 mg) 1 capsule, 3x a day Elizabeth-Lanta Oral, prn LamoTRIgine Oral (200 mg) 1 tablet, at HS LamoTRIgine Oral (100 mg) 3 tablets, daily Lisinopril Oral (5 mg), daily Metoprolol Tartrate Oral (100 mg) 1 tablet, BID Milk of Magnesia Oral Senna Oral Tylenol Oral The source(s) of the original Home Medication information: patient's [facility] record The following Medications were given to the patient in the Emergency Department: ZYPREXA ZYDIS ODT [PO] PO 5 mg, administered: 06/04/2016 10:29:00 AM IV NS IV Fluids bolus 0, then 1000 mL/hr, administered: 06/04/2016 10:38:00 AM Ceftriaxone [IVPB] IVPB bolus 0, then 1 gm 125 mL/hr, administered: 06/04/2016 11:57:00 AM The following Medications were prescribed to the patient: None.
--- NOTE | 2016-06-04 20:54 | ED MAR SUMMARY ---
..... Medication Administration Record [facility] [address] [place] [place] [address] Patient: TIRSO MELTON Visit ID: [id number] 71y, F Weight: 114.7 kg Height/Length: 65 in BMI: 42.1 ALLERGIES: Penicillins Given 10:29 06/04/2016 Miguel A Tineo R.N. Medication Administered: ZYPREXA ZYDIS ODT [PO] (OLANZAPINE), Dose: 5 mg PO. Medication Ordered: ZyPREXA Zydis ODT PO 5 mg (NOW). Start 10:38 06/04/2016 Miguel A Tineo R.N. Medication Administered: IV NS (SALINE), Dose: IV Fluids over 1 hour(s), Rate: 1000 mL/hr, Dispensed: 1000 mL bag, Site: #1 right AC. Medication Ordered: IV NS : initial bolus 500 mL (1000 mL/hr), then 250 mL/hr for X2 (NOW). Start 11:57 06/04/2016 Gina Khan R.N., Stop 12:53 06/04/2016 Miguel A Tineo R.N. Medication Administered: CEFTRIAXONE [IVPB], Dose: 1 gm IVPB over 20 minute(s), Rate: 125 mL/hr, Dispensed: 50 mL bag, Site: #1 right AC. Medication Ordered: Ceftriaxone IV 1 gm/50mL (NOW).
--- NOTE | 2016-06-04 20:54 | ED MED RECONCILIATION SUMMARY ---
Patient: TIRSO MELTON Medication Reconciliation Report [facility] VisitID: [id number] [address] [place] [address] 71y, F Registration Date/Time: 06/04/2016 Weight: 114.7 kg Height/Length: 65 in. BMI: 42.1 ALLERGIES: Penicillins The patient's Home Medications are listed below: THE FOLLOWING MEDICATIONS NEED TO BE RECONCILED: Atorvastatin Calcium Oral (80 mg) 1 tablet, at bedtime Citalopram Hydrobromide Oral (20 mg) 1 tablet, daily Coumadin Oral (2 mg), daily, 4.5mg Dulcolax Oral Gabapentin Oral (300 mg) 1 capsule, 3x a day Elizabeth-Lanta Oral, prn LamoTRIgine Oral (200 mg) 1 tablet, at HS LamoTRIgine Oral (100 mg) 3 tablets, daily Lisinopril Oral (5 mg), daily Metoprolol Tartrate Oral (100 mg) 1 tablet, BID Milk of Magnesia Oral Senna Oral Tylenol Oral The source(s) of the original Home Medication information: patient's senior care record The following Medications were given to the patient in the Emergency Department: ZYPREXA ZYDIS ODT [PO] PO 5 mg, administered: 06/04/2016 10:29:00 AM IV NS IV Fluids bolus 0, then 1000 mL/hr, administered: 06/04/2016 10:38:00 AM Ceftriaxone [IVPB] IVPB bolus 0, then 1 gm 125 mL/hr, administered: 06/04/2016 11:57:00 AM The following Medications were prescribed to the patient: None.
--- NOTE | 2016-06-04 20:54 | ED DISCHARGE INSTRUCTIONS ---
Patient: TIRSO MELTON General Instructions [facility] VisitID: [id number] [address] [place] [address] 71y, F Registration Date/Time: 06/04/2016 Acute mental status change with confusion. Acute urinary tract infection with cystitis. ADDITIONAL INFORMATION Confusion Confusion is a change in a persons ability to think clearly. There may be trouble recognizing familiar people and places, or knowing what day it is. Memory, judgement and decision-making may also be affected. In severe cases there may be limited or no response to verbal commands. Confusion may occur suddenly or develop gradually over time. There are many injuries and medical conditions that can cause this problem. These include brain injury, side effect of medication, intoxication, withdrawal from drugs, infection, stroke, dementia,mental illness and other causes. The exam and testing today did not show the cause of this problem. Further testing will be needed. Specific treatment and hope for recovery depend on the cause of this symptom. Home Care: Be sure someone is with the confused person at all times. He/she should not be left alone or unsupervised. Keep medicines (prescription and [id number]-[id number]) in a secure place, under the caregivers control. A person with confusion should not be allowed to take their own medicines.This needs to be supervised by the caregiver. Ways to help a person with confusion: Activities:Establish a daily routine. Change can be a source of stress for someone with confusion. Make a time schedule for common tasks such as: bathing, dressing, taking medicines, meals, going for walks, shopping, naps and bed time. Communication:Speak slowly and clearly with a gentle tone of voice. Use short simple words and sentences. Ask one question at a time. Do not interrupt, criticize or argue. Be calm and supportive. Use friendly facial expressions. Use pointing and touching to help communicate. If there has been loss of long-term memory, do not ask questions about past events. This would only cause frustration for the person. Behavioral tips:Use lists, signs, family photos, clocks and calendars as memory aids. Label cabinets and drawers. Try to distract, not confront, the patient. When he/she becomes frustrated or upset, redirect his/her attention to eating or some other activity of interest. Medical-Legal tips: If this proves to be a permanent condition, talk to your doctor and/or applied exercise physiologist about getting a Power of Coding Clerks Supervisor for health care and for financial decisions. It is best to do this while the person can still sign legal documents and make his/loki own legal decisions. Otherwise, a court order will be required. Follow-Up with the patients doctor or as advised by our staff for further testing. Get Prompt Medical Attention if any of the following occur: Frequent falling Refusal to eat or drink Violent behavior or behavior becomes too difficult to manage at home Increased drowsiness, or failure to respond normally Increasing headache, nausea or repeated vomiting Numbness or weakness of the face, one arm or one leg Slurred speech, trouble speaking, walking or seeing Fainting spell, dizziness or seizure Unexplained fever over 100.4 F (38.0 C) oral Bladder Infection,Female (Adult) A bladder infection ("cystitis" or "UTI") usually causes a constant urge to urinate and a burning when passing urine. Urine may be cloudy, smelly or dark. There may be pain in the lower abdomen. A bladder infection occurs when bacteria from the vaginal area enter the bladder opening (urethra). This can occur from sexual intercourse, wearing tight clothing, dehydration and other factors. Home Care: Drink lots of fluids (at least 6-8 glasses a day, unless you must restrict fluids for other medical reasons). This will force the medicine into your urinary system and flush the bacteria out of your body. Avoid sexual intercourse until your symptoms are gone. Avoid caffeine, alcohol and spicy foods. These can irritate the bladder. A bladder infection is treated with antibiotics. You may also be given Pyridium (generic = phenazopyridine) to reduce the burning sensation. This medicine will cause your urine to become a bright orange color. The orange urine may stain clothing. You may wear a pad or panty-liner to protect clothing. Preventing Future Infections: Always wipe from front to back after a bowel movement. Keep the genital area clean and dry. Drink plenty of fluids each day to avoid dehydration. Both sexual partners should wash before intercourse. Urinate right after intercourse to flush out the bladder. Wear cotton underwear and cotton-lined panty hose; avoid tight-fitting pants. If you are on control pills and are having frequent bladder infections, discuss with your doctor. Follow Up: Return to this facility or see your doctor if ALL symptoms are not gone after three days of treatment. Get Prompt Medical Attention if any of the following occur: Fever of 100.4F (38C) or higher, or as directed by your healthcare provider No improvement by the third day of treatment Increasing back or abdominal pain Repeated vomiting; unable to keep medicine down Weakness, dizziness or fainting Vaginal discharge Pain, redness or swelling in the labia (outer vaginal area) You have been given the following additional information: Confusion Bladder Infection, Female (Adult) (Electronically signed by Arias May DO 06/04/2016 20:54)
--- NOTE | 2016-06-04 20:54 | ED MAR SUMMARY ---
..... Medication Administration Record [facility] [address] [place] [address] Patient: TIRSO MELTON Visit ID: [id number] 71y, F Weight: 114.7 kg Height/Length: 65 in BMI: 42.1 ALLERGIES: Penicillins Given 10:29 06/04/2016 Miguel A Tineo R.N. Medication Administered: ZYPREXA ZYDIS ODT [PO] (OLANZAPINE), Dose: 5 mg PO. Medication Ordered: ZyPREXA Zydis ODT PO 5 mg (NOW). Start 10:38 06/04/2016 Miguel A Tineo R.N. Medication Administered: IV NS (SALINE), Dose: IV Fluids over 1 hour(s), Rate: 1000 mL/hr, Dispensed: 1000 mL bag, Site: #1 right AC. Medication Ordered: IV NS : initial bolus 500 mL (1000 mL/hr), then 250 mL/hr for X2 (NOW). Start 11:57 06/04/2016 Gina Khan R.N., Stop 12:53 06/04/2016 Miguel A Tineo R.N. Medication Administered: CEFTRIAXONE [IVPB], Dose: 1 gm IVPB over 20 minute(s), Rate: 125 mL/hr, Dispensed: 50 mL bag, Site: #1 right AC. Medication Ordered: Ceftriaxone IV 1 gm/50mL (NOW).
[2016-06-04 23:18] VITALS: BP 104/48
[2016-06-05 03:14] VITALS: BP 140/63
[2016-06-05 06:22] VITALS: BP 162/72
[2016-06-05 10:28] VITALS: BP 137/73
[2016-06-05 14:24] VITALS: BP 121/80
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
[2016-06-05 19:47] VITALS: BP 112/35
[2016-06-05 22:28] VITALS: BP 168/70
[2016-06-06 02:08] VITALS: BP 158/78
[2016-06-06 06:07] VITALS: BP 149/79
[2016-06-06 13:04] VITALS: BP 154/91
[2016-06-06 14:45] VITALS: BP 132/59
--- NOTE | 2016-06-06 16:53 | Progress Note ---
Subjective General Pt seen and examined. Patient apparently last night tried to get out of bed however suffered a fall from the level of the bed to the floor. Patient did not hit her head, and examination does not reveal any hematomas, or evidence of injury. Patient is otherwise pleasant this morning. Constitutional Denies: Fever, Chills, Sweats, Weakness, Malaise, Other. Eyes Denies: Pain, Vision Change, Conjunctival Inflammation, Eyelid Inflammation, Redness, Other. ENT Denies: Ear Pain, Ear Discharge, Nose Pain, Nasal Discharge, Nasal Congestion, Mouth Pain, Mouth Swelling, Throat Pain, Throat Swelling, Other. Respiratory Denies: Cough, Dry, SOB w/exertion, Wheezing, Hemoptysis, Pleuritic Pain, Sputum , Other. Cardiovascular Denies: Chest Pain, Palpitations, Orthopnea, PND, Edema, Light-headedness, Other. Gastrointestinal Denies: Nausea, Vomiting, Abdominal Pain, Diarrhea, Constipation, Melena, Hematochezia, Other. Genitourinary Denies: Dysuria, Frequency, Incontinence, Hematuria, Retention, Other. Musculoskeletal Other (leg weakness ). Denies: Neck Pain, Shoulder Pain, Arm Pain, Back Pain, Hand Pain, Leg Pain, Foot Pain. Skin Denies: Rash, Lesions, Jaundice, Bruising, Other. Neurological Denies: Weakness, Numbness, Incoordination, Change in speech, Confusion, Seizures, Other. Physical Exam Vital Signs / I&Os Vital Signs Date Time Temp Pulse Resp B/P Pulse O2 O2 Flow FiO2 Ox Delivery Rate 06/06 1445 98.2 69 16 132/59 96 06/06 1304 98.2 68 18 154/91 94 Room Air 06/06 0607 98.2 78 18 149/79 95 Room Air 06/06 0208 98.1 73 18 158/78 98 Room Air 06/05 2228 98.1 88 17 168/70 96 Room Air 06/05 1947 98.4 85 16 112/35 100 I&O 06/05 0800 06/05 1600 06/06 0000 Intake Total 850 1874 200 Output Total 250 650 875 Balance 600 1224 -675 General Appearance Alert, Oriented X3, No acute distress HEENT Atraumatic, PERRLA, Moist mucous membranes Lungs Clear to auscultation, Normal air movement Cardiovascular Regular rate and rhythm, Normal S1 and S2, No murmurs, gallops, rubs Abdomen Soft Extremities Normal pulses, No tenderness Skin No Rashes Psych/Mental Status - pt is acting appropriately and conversing normally from my exam LAB Results Laboratory Tests 06/06 0535 Chemistry Plasma Sodium (136 - 145 mmol/L) 143 Plasma Potassium (3.5 - 5.1 mmol/L) 4.0 Plasma Chloride (98 - 107 mmol/L) 107 CO2 (Enzymatic) (21 - 32 mmol/L) 27 BUN (7 - 18 mg/dL) 18 Creatinine (0.6 - 1.3 mg/dL) 0.8 Est GFR ( Amer) (mL/min) >60 Est GFR (Non-Af Amer) (mL/min) >60 Glucose (70 - 110 mg/dL) 110 Plasma Calcium (8.5 - 10.1 mg/dL) 8.3 Coagulation INR (0.8 - 1.2) 2.4 Hematology WBC (4.5 - 11.5 K/uL) 8.0 RBC (4.00 - 5.20 M/uL) 4.28 Hgb (12.0 - 16.0 gm/dL) 11.5 Hct (36.0 - 46.0 %) 35.8 MCV (80 - 100 fL) 84 MCH (26 - 34 pg) 27 RDW (11.6 - 14.8 %) 15.7 Neut % (Auto) (50 - 75 %) 59.8 Lymph % (Auto) (25 - 40 %) 26.5 [place] % (Auto) (3 - 14 %) 9.6 Eos % (Auto) (0 - 4 %) 4.0 Baso % (Auto) (0 - 2 %) 0.1 Plt Count, EDTA (150 - 400 K/uL) 227 PUBS MCHC (31 - 37 g/dL) 32 Assessment and Plan Problem List 1. Cerebrovascular accident (CVA) involving left middle cerebral artery territory Plan - stable 2. Altered mental status, unspecified Plan - pt was acutely confuse on admission - Pts mental status was improving immensely - currently patient is at baseline 3. Hypertension Status Chronic Onset Date Unknown Plan - c/w home medications 4. Chronic anticoagulation Status Chronic Onset Date Unknown 5. UTI (urinary tract infection) Status Acute Onset Date Unknown Plan - c/w ceftriaxone - will continue to trend cbc - no evidence of secondary infection - will follow up micro results 6. Atrial fibrillation Status Chronic Onset Date Unknown Plan - c.w home meds - daily inr - will continue with coumadin at home dose
[2016-06-06 18:23] VITALS: BP 146/79
[2016-06-06 22:30] VITALS: BP 195/95
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
[2016-06-07 07:54] VITALS: BP 200/101
[2016-06-07 10:01] VITALS: BP 173/85
[2016-06-07 14:17] VITALS: BP 143/69
--- NOTE | 2016-06-07 17:46 | Progress Note ---
Subjective General Pt seen and examined. Patient was very sedated upon examinging her. Patient is still claiming that she will harm herself . Patient had a mental health evaluation however patient did not qualify for acute psychiatric care at the moment. Constitutional Other (unable to assess ). Physical Exam Vital Signs / I&Os Vital Signs Date Time Temp Pulse Resp B/P Pulse O2 O2 Flow FiO2 Ox Delivery Rate 06/07 1417 98.1 85 18 143/69 94 Room Air 06/07 1010 Room Air 06/07 1001 98.4 117 18 173/85 97 Room Air 06/07 0754 97.9 87 18 200/101 97 Room Air 06/06 2230 97.9 85 18 195/95 96 Room Air 06/06 1823 98.4 71 18 146/79 94 Room Air I&O 06/06 0800 06/06 1600 06/07 0000 Intake Total 400 480 Output Total 324 433 4051 Balance -425 -270 -1200 General Appearance No acute distress HEENT Moist mucous membranes Lungs Clear to auscultation, Normal air movement Cardiovascular Regular rate and rhythm, Normal S1 and S2, No murmurs, gallops, rubs Abdomen Soft, No tenderness Extremities No edema, Normal pulses Neurological Normal speech, Sensation intact Psych/Mental Status Confused, - Pt has suicidal ideations that require sedation LAB Results Laboratory Tests 06/07 06/07 0543 1345 Chemistry Plasma Sodium (136 - 145 mmol/L) 147 Plasma Potassium (3.5 - 5.1 mmol/L) 3.9 Plasma Chloride (98 - 107 mmol/L) 108 CO2 (Enzymatic) (21 - 32 mmol/L) 30 BUN (7 - 18 mg/dL) 16 Creatinine (0.6 - 1.3 mg/dL) 0.9 Est GFR ( Amer) (mL/min) >60 Est GFR (Non-Af Amer) (mL/min) >60 Glucose (70 - 110 mg/dL) 112 Plasma Calcium (8.5 - 10.1 mg/dL) 9.1 Total Bilirubin (0.0 - 1.0 mg/dL) 0.5 AST (15 - 37 U/L) 19 ALT (12 - 78 U/L) 19 Alkaline Phosphatase (46 - 116 U/L) 102 Total Protein (6.4 - 8.2 g/dL) 6.3 Albumin (3.3 - 5.0 g/dL) 3.1 Coagulation INR (0.8 - 1.2) 2.2 Hematology WBC (4.5 - 11.5 K/uL) 7.3 RBC (4.00 - 5.20 M/uL) 4.61 Hgb (12.0 - 16.0 gm/dL) 12.5 Hct (36.0 - 46.0 %) 38.3 MCV (80 - 100 fL) 83 MCH (26 - 34 pg) 27 RDW (11.6 - 14.8 %) 15.4 Neut % (Auto) (50 - 75 %) 55.5 Lymph % (Auto) (25 - 40 %) 31.5 [place] % (Auto) (3 - 14 %) 9.0 Eos % (Auto) (0 - 4 %) 3.7 Baso % (Auto) (0 - 2 %) 0.3 Plt Count, EDTA (150 - 400 K/uL) 258 PUBS MCHC (31 - 37 g/dL) 33 Urines Urine Color YELLOW Urine Appearance CLEAR Urine pH (5.0 - 8.0) 5.5 Ur Specific [place] (1.010 - 1.030) 1.015 Urine Protein (NEGATIVE) NEGATIVE Urine Ketones (NEGATIVE) NEGATIVE Urine Blood (NEGATIVE) NEGATIVE Urine Nitrite (NEGATIVE) NEGATIVE Urine Bilirubin (NEGATIVE) NEGATIVE Urine Urobilinogen (0.2 - 1.0 EU/dL) 0.2 Ur Leukocyte Esterase (NEGATIVE) NEGATIVE Urine RBC (0 - 1 rbc/hpf) 0-1 Urine WBC (0 - 1 wbc/hpf) NONE SEEN Ur Epithelial Cells (0 - 5 EPI/hpf) 0-1 Urine Bacteria (NONE SEEN) NONE SEEN Urine Glucose (NEGATIVE) NEGATIVE Urine Comment . Assessment and Plan Problem List 1. 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 UTI (urinary tract infection) Status Acute Onset Date Unknown Plan - pt is medically clear - will require a few days of antibiotics to complete the course - will repeat UA 3. Atrial fibrillation Status Chronic Onset Date Unknown Plan - stable - will obtain daily inrs
[2016-06-07 18:26] VITALS: BP 140/61
[2016-06-07 22:24] VITALS: BP 153/78
[2016-06-08 06:21] VITALS: BP 143/62
[2016-06-08 11:37] VITALS: BP 150/76
[2016-06-08 14:38] VITALS: BP 123/88
--- NOTE | 2016-06-08 18:29 | Progress Note ---
Subjective General Patient seen and examined in the am. Patient is pleasant and had no acute events overnight. Patient is otherwise stable. Constitutional Denies: Fever, Chills, Sweats, Weakness, Malaise, Other. Eyes Denies: Pain, Vision Change, Conjunctival Inflammation, Eyelid Inflammation, Redness, Other. ENT Denies: Ear Pain, Ear Discharge, Nose Pain, Nasal Discharge, Nasal Congestion, Mouth Pain, Mouth Swelling, Throat Pain, Throat Swelling, Other. Respiratory Denies: Cough, Dry, SOB w/exertion, Wheezing, Hemoptysis, Pleuritic Pain, Sputum , Other. Cardiovascular Denies: Chest Pain, Palpitations, Orthopnea, PND, Edema, Light-headedness, Other. Gastrointestinal Denies: Nausea, Vomiting, Abdominal Pain, Diarrhea, Constipation, Melena, Hematochezia, Other. Genitourinary Denies: Dysuria, Frequency, Incontinence, Hematuria, Retention, Other. Musculoskeletal Denies: Neck Pain, Shoulder Pain, Arm Pain, Back Pain, Hand Pain, Leg Pain, Foot Pain, Other. Skin Denies: Rash, Lesions, Jaundice, Bruising, Other. Neurological Denies: Weakness, Numbness, Incoordination, Change in speech, Confusion, Seizures, Other. Physical Exam Vital Signs / I&Os Vital Signs Date Time Temp Pulse Resp B/P Pulse O2 O2 Flow FiO2 Ox Delivery Rate 06/08 1438 98.2 75 20 123/88 97 Room Air 06/08 1137 97.9 62 16 150/76 91 Room Air 06/08 0930 Room Air 06/08 0621 98.2 82 22 143/62 95 Room Air 06/07 2224 98.1 72 18 153/78 97 Room Air 06/07 2104 Room Air I&O 06/07 0800 06/07 1600 06/08 0000 Intake Total 053 500 3827 Output Total 100 850 400 Balance 100 -610 800 General Appearance Alert, Oriented X3, No acute distress HEENT Atraumatic, PERRLA, Moist mucous membranes Lungs Clear to auscultation, Normal air movement Cardiovascular No murmurs, gallops, rubs Abdomen Soft Skin No Rashes, No Breakdown Psych/Mental Status Mental status normal LAB Results Laboratory Tests 06/08 0545 Chemistry Plasma Sodium (136 - 145 mmol/L) 142 Plasma Potassium (3.5 - 5.1 mmol/L) 4.3 Plasma Chloride (98 - 107 mmol/L) 106 CO2 (Enzymatic) (21 - 32 mmol/L) 29 BUN (7 - 18 mg/dL) 15 Creatinine (0.6 - 1.3 mg/dL) 0.9 Est GFR ( Amer) (mL/min) >60 Est GFR (Non-Af Amer) (mL/min) >60 Glucose (70 - 110 mg/dL) 95 Plasma Calcium (8.5 - 10.1 mg/dL) 8.6 Total Bilirubin (0.0 - 1.0 mg/dL) 0.5 AST (15 - 37 U/L) 18 ALT (12 - 78 U/L) 22 Alkaline Phosphatase (46 - 116 U/L) 96 Total Protein (6.4 - 8.2 g/dL) 6.1 Albumin (3.3 - 5.0 g/dL) 2.9 Coagulation INR (0.8 - 1.2) 2.5 Hematology WBC (4.5 - 11.5 K/uL) 10.0 RBC (4.00 - 5.20 M/uL) 4.66 Hgb (12.0 - 16.0 gm/dL) 12.6 Hct (36.0 - 46.0 %) 38.9 MCV (80 - 100 fL) 84 MCH (26 - 34 pg) 27 RDW (11.6 - 14.8 %) 15.5 Neut % (Auto) (50 - 75 %) 58.6 Lymph % (Auto) (25 - 40 %) 28.8 [place] % (Auto) (3 - 14 %) 8.3 Eos % (Auto) (0 - 4 %) 4.0 Baso % (Auto) (0 - 2 %) 0.3 Plt Count, EDTA (150 - 400 K/uL) 288 PUBS MCHC (31 - 37 g/dL) 33 Assessment and Plan Problem List 1. UTI (urinary tract infection) Status Acute Onset Date Unknown Plan - currently in the middle of antibiotic therapy - no sign of infection on repeat UA - will continue to monitor WBC 2. Chronic anticoagulation Status Chronic Onset Date Unknown Plan - pt on coumadin for AFib - will continue to obtain daily inrs 3. Hypertension Status Chronic Onset Date Unknown Plan - stable - c/w home meds 4. Cerebrovascular accident (CVA) involving left middle cerebral artery territory Plan - pt has a history of cva - no residual deficits noted
[2016-06-08 18:51] VITALS: BP 145/74
[2016-06-09 05:03] VITALS: BP 152/76
[2016-06-09 10:33] VITALS: BP 152/76
[2016-06-09 14:33] VITALS: BP 162/67
--- NOTE | 2016-06-09 16:52 | Progress Note ---
Subjective General Pt seen and examined. Patient became agitated last night and accused staff of plotting against her. Patient was reluctant to trust staff and as a result became very agitated. Patient was given haldol with good results. Patient is otherwise pleasant upon exam and is cooperative during the day. Constitutional Denies: Fever, Chills, Sweats, Weakness, Malaise, Other. Respiratory Denies: Cough, Dry, SOB w/exertion, Wheezing, Hemoptysis, Pleuritic Pain, Sputum , Other. Cardiovascular Denies: Chest Pain, Palpitations, Orthopnea, PND, Edema, Light-headedness, Other. Gastrointestinal Denies: Nausea, Vomiting, Abdominal Pain, Diarrhea, Constipation, Melena, Hematochezia, Other. Genitourinary Denies: Dysuria, Frequency, Incontinence, Hematuria, Retention, Other. Musculoskeletal Denies: Neck Pain, Shoulder Pain, Arm Pain, Back Pain, Hand Pain, Leg Pain, Foot Pain, Other. Skin Denies: Rash, Lesions, Jaundice, Bruising, Other. Neurological Denies: Weakness, Numbness, Incoordination, Change in speech, Confusion, Seizures, Other. Physical Exam Vital Signs / I&Os Vital Signs Date Time Temp Pulse Resp B/P Pulse O2 O2 Flow FiO2 Ox Delivery Rate 06/09 1433 98.2 85 24 162/67 93 Room Air 06/09 1320 Room Air 06/09 1033 98.2 75 24 152/76 94 Room Air 06/09 0503 72 16 152/76 95 Room Air 06/09 0322 97.9 64 16 93 Room Air 06/09 0212 18 06/08 2230 Room Air 06/08 1851 97.3 71 16 145/74 96 Room Air I&O 06/08 0800 06/08 1600 06/09 0000 Intake Total 991 560 400 Output Total 1120 500 450 Balance -129 60 -50 General Appearance Cooperative, No acute distress HEENT Atraumatic, PERRLA, Moist mucous membranes Lungs Clear to auscultation, Normal air movement Cardiovascular Regular rate and rhythm, Normal S1 and S2 Abdomen Soft, No tenderness, No guarding, No rebound, No masses, No hepatosplenomegaly Extremities No cyanosis, No clubbing, No edema, Normal pulses, No tenderness Skin No Breakdown Psych/Mental Status Mental status normal LAB Results Laboratory Tests 06/09 0545 Chemistry Plasma Sodium (136 - 145 mmol/L) 141 Plasma Potassium (3.5 - 5.1 mmol/L) 3.8 Plasma Chloride (98 - 107 mmol/L) 107 CO2 (Enzymatic) (21 - 32 mmol/L) 26 BUN (7 - 18 mg/dL) 14 Creatinine (0.6 - 1.3 mg/dL) 0.8 Est GFR ( Amer) (mL/min) >60 Est GFR (Non-Af Amer) (mL/min) >60 Glucose (70 - 110 mg/dL) 96 Plasma Calcium (8.5 - 10.1 mg/dL) 8.6 Total Bilirubin (0.0 - 1.0 mg/dL) 0.5 AST (15 - 37 U/L) 19 ALT (12 - 78 U/L) 18 Alkaline Phosphatase (46 - 116 U/L) 85 Total Protein (6.4 - 8.2 g/dL) 6.3 Albumin (3.3 - 5.0 g/dL) 2.6 Coagulation INR (0.8 - 1.2) 3.0 Hematology WBC (4.5 - 11.5 K/uL) 7.9 RBC (4.00 - 5.20 M/uL) 4.25 Hgb (12.0 - 16.0 gm/dL) 11.6 Hct (36.0 - 46.0 %) 35.3 MCV (80 - 100 fL) 83 MCH (26 - 34 pg) 27 RDW (11.6 - 14.8 %) 15.6 Neut % (Auto) (50 - 75 %) 67.6 Lymph % (Auto) (25 - 40 %) 20.7 [place] % (Auto) (3 - 14 %) 7.2 Eos % (Auto) (0 - 4 %) 4.1 Baso % (Auto) (0 - 2 %) 0.4 Plt Count, EDTA (150 - 400 K/uL) 247 PUBS MCHC (31 - 37 g/dL) 33 Assessment and Plan Problem List 1. Altered mental status, unspecified Plan - pt has waxing and waning altered mental status - when patient speaks to me she does not make any reference to her psychosis - however at night she become very agitated and makes claims of abuse about the staff - will continue to control with prn haldol -currently still looking for inpatient psychiatric facility 2. Chronic anticoagulation Status Chronic Onset Date Unknown Plan - inr 3.0 - will hold coumadin tonite 3. UTI (urinary tract infection) Status Acute Onset Date Unknown Plan - patient has no symptoms at the moment - will c/w antibiotics
[2016-06-09 19:57] VITALS: BP 165/85
[2016-06-09 22:24] VITALS: BP 151/62
[2016-06-10 03:55] VITALS: BP 145/75
[2016-06-10 06:20] VITALS: BP 151/73
--- NOTE | 2016-06-10 08:19 | Progress Note ---
Subjective General Note Date: June 10, 2016 Admission Date: June 04, 2016 Hospital Day: 7 PCP: Ashok Griffin M.D. Status: Inpatient Advanced Directive: NO CODE Room: 207 Subjective: The patient states she is doing well. Remains confused intermittently. No significant agitation. Denies hallucinations Patient requests: None Medications and Allergies Medications Current Medications Sig/Allie Start time Last Medication Dose Route Stop Time Status Admin Warfarin Sodium 2 MG DAILY@1400 06/10 1400 AC PO Cephalexin 500 MG TID 06/07 2200 AC 06/10 PO 0628 Haloperidol Lactate See Dose Q6H PRN 06/07 0945 AC 06/09 Insts (1) IM 0140 Atorvastatin Calcium 80 MG QPM 06/05 1800 AC 06/09 PO 1845 Pantoprazole Sodium 40 MG DAILY@0600 06/05 0600 AC 06/10 Sesquihydrate PO 0628 Gabapentin 300 MG TID 06/04 2200 AC 06/10 PO 0628 Docusate Sodium 100 MG BID 06/04 2100 AC 06/09 PO 2018 Lamotrigine 200 MG QHS 06/04 2100 AC 06/09 PO 2018 Metoprolol Tartrate 50 MG BID 06/04 2100 AC 06/09 PO 2018 Lisinopril 5 MG DAILY 06/04 1831 AC 06/09 PO 1022 Acetaminophen 650 MG Q4H PRN 06/04 1830 AC 06/08 PO 1353 Citalopram 20 MG DAILY 06/04 1830 AC 06/09 Hydrobromide PO 1022 Lamotrigine 300 MG DAILY 06/04 1830 AC 06/09 PO 1022 Dose Instructions: (1)Haloperidol Lactate: 2 - 5 MG Allergies Coded Allergies: Penicillins (Intermediate, Nausea 05/20/16) Physical Exam Vital Signs / I&Os Vital Signs Date Time Temp Pulse Resp B/P Pulse O2 O2 Flow FiO2 Ox Delivery Rate 06/10 06 98.4 77 18 151/73 96 Room Air 06/10 0355 97.9 76 18 145/75 95 Room Air 06/094 99.7 77 18 151/62 95 Room Air 06/09 2022 Room Air 06/09 1956 98.1 87 20 165/85 94 Room Air 06/09 1433 98.2 85 24 162/67 93 Room Air 06/09 1320 Room Air 06/09 1033 98.2 75 24 152/76 94 Room Air I&O 06/10 0000 06/09 1600 06/09 0800 Intake Total 423 837 0668 Output Total 1450 1075 500 Balance -760 -109 1300 General Appearance Alert, Cooperative, No acute distress Lungs Clear to auscultation Cardiovascular Regular rate and rhythm, Normal S1 and S2 Abdomen Normal bowel sounds, Soft, No tenderness Extremities No cyanosis, No clubbing Neurological Cranial nerves intact, No lateralizing signs Psych/Mental Status Mood normal, Confused LAB Results Laboratory Tests 06/10 0612 Coagulation INR (0.8 - 1.2) 2.7 Assessment and Plan Problem List 1. Altered mental status, unspecified Plan -Mental status remains abnormal -Patient slightly confused oriented to place, person-not time -No significant agitation -Denies hallucinations 2. Chronic anticoagulation Status Chronic Onset Date Unknown Plan -Stable -INR 2.7 -Continue present therapy 3. Atrial fibrillation Status Chronic Onset Date Unknown Plan -Heart rate stable -Continue anticoagulation -Monitor 4. UTI (urinary tract infection) Status Acute Onset Date Unknown Plan -Improved -Urine culture positive for Klebsiella pneumoniae -Klebsiella sensitive to cephalosporins -Repeat urinalysis unremarkable -DC Keflex in a.m., course completed 5. Hypertension Status Chronic Onset Date Unknown Plan -Blood pressure adequately controlled -BP this a.m. 145/71 -Continue present therapy Current status: Fair, improved Anticipated discharge date: Anticipated discharge in a.m. Anticipated discharge placement: Adult home, general psych unit Patient care time: Time spent in chart review, patient interview, physical exam, CPOE, and care documentation: 25 minutes Visit to patient today: 1 Complexity of care: Moderate E&M Codes Rounding: Inpt-Moderate/83762 E&M Codes Rounding: Inpt-Moderate/03610
[2016-06-10 10:10] VITALS: BP 145/71
[2016-06-10 14:14] VITALS: BP 125/67
[2016-06-10 18:41] VITALS: BP 153/88
[2016-06-10 22:11] VITALS: BP 175/84
[2016-06-11 02:32] VITALS: BP 166/92
[2016-06-11 06:06] VITALS: BP 171/76
[2016-06-11 10:55] VITALS: BP 149/60
--- NOTE | 2016-06-11 17:49 | Progress Note ---
Subjective General Note Date: June 11, 2016 Admission Date: June 04, 2016 Hospital Day: 8 PCP: Ashok Griffin M.D. Status: Inpatient Advanced Directive: NO CODE Room: 207 Subjective: The patient states she is doing well. Remains confused intermittently. No significant agitation. Denies hallucinations. Ambulation improving. Patient requests: None Medications and Allergies Medications Current Medications Sig/Allie Start time Last Medication Dose Route Stop Time Status Admin Warfarin Sodium 2 MG DAILY@1400 06/10 1400 AC 06/11 PO 1258 Haloperidol Lactate See Dose Q6H PRN 06/07 0945 AC 06/09 Insts (1) IM 0140 Atorvastatin Calcium 80 MG QPM 06/05 1800 AC 06/11 PO 1735 Pantoprazole Sodium 40 MG DAILY@0600 06/05 0600 AC 06/11 Sesquihydrate PO 0646 Gabapentin 300 MG TID 06/04 2200 AC 06/11 PO 1257 Docusate Sodium 100 MG BID 06/04 2100 AC 06/11 PO 0833 Lamotrigine 200 MG QHS 06/04 2100 AC 06/10 PO 2213 Metoprolol Tartrate 50 MG BID 06/04 2100 AC 06/11 PO 0833 Lisinopril 5 MG DAILY 06/04 183 AC 06/11 PO 0833 Acetaminophen 650 MG Q4H PRN 06/04 1830 AC 06/11 PO 1014 Citalopram 20 MG DAILY 06/04 1830 AC 06/11 Hydrobromide PO 0833 Lamotrigine 300 MG DAILY 06/04 1830 AC 06/11 PO 0833 Dose Instructions: (1)Haloperidol Lactate: 2 - 5 MG Allergies Coded Allergies: Penicillins (Intermediate, Nausea 05/20/16) Physical Exam Vital Signs / I&Os Vital Signs Date Time Temp Pulse Resp B/P Pulse O2 O2 Flow FiO2 Ox Delivery Rate 06/11 1055 98.1 77 18 149/60 94 Room Air 06/11 0606 98.2 58 18 171/76 97 Room Air 06/11 0232 99.0 73 16 166/92 91 Room Air 06/10 2211 98.4 78 20 175/84 96 Room Air 06/10 1930 Room Air 06/10 1841 98.6 97 20 153/88 96 Room Air I&O 06/11 0000 06/10 1600 06/10 0800 Intake Total 750 600 100 Output Total 550 725 950 Balance 200 -125 -850 General Appearance Alert, Oriented X3, Cooperative, No acute distress Lungs Clear to auscultation Cardiovascular Normal S1 and S2, irregular rhythm, rate control Abdomen Normal bowel sounds, Soft, No tenderness Extremities No cyanosis, No clubbing Psych/Mental Status Mood normal, Confused Assessment and Plan Problem List 1. Altered mental status, unspecified Plan -Much improved -No hallucinations, delusions. No significant agitation -Pleasant in interaction today -Awaiting mental health placement 2. Hypertension Status Chronic Onset Date Unknown Plan -Mild elevation, BP 149/60 -Increased lisinopril to 5 mg by mouth twice a day -Monitor 3. Atrial fibrillation Status Chronic Onset Date Unknown Plan -Stable -Rate controlled. -Continue present therapy 4. Chronic anticoagulation Status Chronic Onset Date Unknown Plan -Stable -Continue present therapy -Recheck INR in a.m. 5. UTI (urinary tract infection) Status Acute Onset Date Unknown Plan -Resolved -DC Keflex Current status: Fair, improved Anticipated discharge date: Anticipated discharge in a.m. Anticipated discharge placement: Mental health facility versus transfer to [facility] Patient care time: Time spent in chart review, patient interview, physical exam, CPOE, and care documentation: 25 minutes Visit to patient today: 2 Complexity of care: Moderate E&M Codes Rounding: Inpt-Moderate/02140
--- NOTE | 2016-06-12 07:40 | Progress Note ---
Subjective General Note Date: June 12, 2016 Admission Date: June 04, 2016 Hospital Day: 9 PCP: Ashok Griffin M.D. Status: Inpatient Advanced Directive: NO CODE Room: 207 Subjective: The patient states she is doing well. Remains confused intermittently. No significant agitation. Denies hallucinations. Ambulation improving. Patient requests: None Medications and Allergies Medications Current Medications Sig/Allie Start time Last Medication Dose Route Stop Time Status Admin Lisinopril 5 MG BID 06/11 2100 AC 06/11 PO 2130 Warfarin Sodium 2 MG DAILY@1400 06/10 1400 AC 06/11 PO 1258 Haloperidol Lactate See Dose Q6H PRN 06/07 0945 AC 06/12 Insts (1) IM 0734 Atorvastatin Calcium 80 MG QPM 06/05 1800 AC 06/11 PO 1735 Pantoprazole Sodium 40 MG DAILY@0600 06/05 0600 AC 06/11 Sesquihydrate PO 0646 Gabapentin 300 MG TID 06/04 2200 AC 06/11 PO 2131 Docusate Sodium 100 MG BID 06/04 2100 AC 06/11 PO 2129 Lamotrigine 200 MG QHS 06/04 2100 AC 06/11 PO 2129 Metoprolol Tartrate 50 MG BID 06/04 2100 AC 06/11 PO 2130 Acetaminophen 650 MG Q4H PRN 06/04 1830 AC 06/11 PO 1947 Citalopram 20 MG DAILY 06/04 183 AC 06/11 Hydrobromide PO 0833 Lamotrigine 300 MG DAILY 06/04 183 AC 06/11 PO 0833 Dose Instructions: (1)Haloperidol Lactate: 2 - 5 MG Allergies Coded Allergies: Penicillins (Intermediate, Nausea 05/20/16) Physical Exam Vital Signs / I&Os Vital Signs Date Time Temp Pulse Resp B/P Pulse O2 O2 Flow FiO2 Ox Delivery Rate 06/11 1055 98.1 77 18 149/60 94 Room Air I&O 06/12 0000 06/11 1600 06/11 0800 Intake Total 480 600 20 Output Total 670 387 0189 Balance 80 75 -1305 General Appearance Alert, Oriented X3, Cooperative, No acute distress Lungs Clear to auscultation, Normal air movement Cardiovascular Normal S1 and S2, irregular rhythm, rate controlled Abdomen Normal bowel sounds, Soft, No tenderness Extremities No cyanosis, No clubbing, No edema Neurological Cranial nerves intact, No lateralizing signs Psych/Mental Status Mood normal Assessment and Plan Problem List 1. Altered mental status, unspecified Plan -improved. -Patient with mild agitation per midline evening. -Will begin low-dose Zyprexa -await placement with mental health 2. Hypertension Status Chronic Onset Date Unknown Plan -mild elevation -Increase lisinopril to 10 mg by mouth twice a day -Low salt diet -Monitor 3. Atrial fibrillation Status Chronic Onset Date Unknown Plan -stable -Monitor -Continue anticoagulation 4. Chronic anticoagulation Status Chronic Onset Date Unknown Plan -stable -INR therapeutic -Monitor 5. UTI (urinary tract infection) Status Acute Onset Date Unknown Plan -resolved -Monitor 6. Cerebrovascular accident (CVA) involving left middle cerebral artery territory Plan -status post CVA -Improved laboratory status -Neurological status stable no new deficit Current status: Fair, stable Anticipated discharge date: Patient ready for discharge medically awaiting placement per discharge planning Anticipated discharge placement: Adult home, mental health facility Patient care time: Time spent in chart review, patient interview, physical exam, CPOE, and care documentation: 25 Visit to patient today: 1 Complexity of care: moderate E&M Codes Rounding: Inpt-Moderate/09440
[2016-06-12 07:55] VITALS: BP 181/97
[2016-06-12 09:57] VITALS: BP 146/72
[2016-06-12 14:37] VITALS: BP 179/100
[2016-06-12 16:21] VITALS: BP 180/78
[2016-06-12 21:34] VITALS: BP 152/69
[2016-06-12 23:32] VITALS: BP 149/82
[2016-06-13 03:18] VITALS: BP 136/75
[2016-06-13 06:31] VITALS: BP 179/93
--- NOTE | 2016-06-13 07:30 | Progress Note ---
Subjective General Note Date: June 13, 2016 Admission Date: June 04, 2016 Hospital Day: 10 PCP: Ashok Griffin M.D. Status: Inpatient Advanced Directive: NO CODE Room: 207 Brief History: The patient is a 71-year-old white female with a significant past medical history of herbal vascular disease status post CVA, atrial fibrillation, chronic anticoagulation, who presented to [facility] emergency department on the day of admission secondary to complaints of mental status changes. [facility] ER evaluation was consistent with acute mental status changes, UTI. Secondary to the above, the patient was admitted by Jaxon Cassidy M.D. for further evaluation and treatment. For other history present illness, past medical history, family history, social history, review of systems, and admission physical examination please see the patient's history and physical examination and ER visit note in the patient's medical record. Subjective: The patient states she is doing well today. No complaints. Slightly confused. Agitation well-controlled Patient requests: [patient requests] Medications and Allergies Medications None Current Medications Sig/Allie Start time Last Medication Dose Route Stop Time Status Admin Lisinopril 10 MG BID 06/12 2100 AC 06/12 PO 2138 Warfarin Sodium 2 MG DAILY@1400 06/10 1400 AC 06/12 PO 1309 Haloperidol Lactate See Dose Q6H PRN 06/07 0945 AC 06/12 Insts (1) IM 0734 Atorvastatin Calcium 80 MG QPM 06/05 1800 AC 06/12 PO 1808 Pantoprazole Sodium 40 MG DAILY@0600 06/05 0600 AC 06/13 Sesquihydrate PO 0610 Gabapentin 300 MG TID 06/04 2200 AC 06/13 PO 0610 Docusate Sodium 100 MG BID 06/04 2099 AC 06/12 PO 2138 Lamotrigine 200 MG QHS 06/04 2100 AC 06/12 PO 2138 Metoprolol Tartrate 50 MG BID 06/04 2100 AC 06/12 PO 2138 Acetaminophen 650 MG Q4H PRN 06/04 1830 AC 06/12 PO 1150 Citalopram 20 MG DAILY 06/04 183 AC 06/12 Hydrobromide PO 0900 Lamotrigine 300 MG DAILY 06/04 183 AC 06/12 PO 0842 Dose Instructions: (1)Haloperidol Lactate: 2 - 5 MG Allergies Coded Allergies: Penicillins (Intermediate, Nausea 05/20/16) Physical Exam Vital Signs / I&Os Vital Signs Date Time Temp Pulse Resp B/P Pulse O2 O2 Flow FiO2 Ox Delivery Rate 06/13 0631 98.2 82 18 179/93 97 Room Air 06/13 0318 98.2 72 16 136/75 95 Room Air 06/12 2332 98.4 93 18 149/82 96 Room Air 06/12 2134 98.1 97 152/69 95 Room Air 06/12 1805 98.2 79 98 06/12 1621 79 180/78 06/12 1509 98.1 06/12 1437 75 18 179/100 96 Room Air 06/12 0957 98.4 74 18 146/72 95 Room Air 06/12 0755 98.8 83 18 181/97 95 Room Air I&O 06/13 0000 06/12 1600 06/12 0800 Intake Total 0 450 50 Output Total 575 600 750 Balance -575 150 -700 General Appearance Alert, Cooperative, No acute distress Lungs Clear to auscultation, Normal air movement Cardiovascular Normal S1 and S2, irregular rhythm, rate controlled Abdomen Normal bowel sounds, Soft, No tenderness Extremities No cyanosis, No clubbing Neurological Cranial nerves intact, No lateralizing signs Psych/Mental Status Confused, mood normal LAB Results Laboratory Tests 06/12 0755 Coagulation INR (0.8 - 1.2) 2.8 Assessment and Plan Problem List 1. Altered mental status, unspecified Plan -Patient with mild confusion -Intermittently agitated -Consider low-dose Zyprexa 2.5 mg by mouth twice a day if unable to place at [facility] tomorrow -Monitor -I called to discuss possible transfer to psych unit at [facility]. Dr. Casiano was not available. He will be in the a.m. We'll have Dr. Moran called to discuss possible transfer for psych evaluation in a.m. 2. UTI (urinary tract infection) Status Acute Onset Date Unknown Plan -Resolved 3. Chronic anticoagulation Status Chronic Onset Date Unknown Plan -Stable -INR 2.8 -Continue present anticoagulation 4. Atrial fibrillation Status Chronic Onset Date Unknown Plan -Stable -Rate well controlled\ -Continue present therapy 5. Hypertension Status Chronic Onset Date Unknown Plan -Blood pressure much better controlled -BP 124/57 -Monitor -Continue present therapy -Low-salt diet 6. Cerebrovascular accident (CVA) involving left middle cerebral artery territory Plan -Stable -Patient ambulating with minimal assist Current status: Fair, improved-persistent mental status problems Anticipated discharge date: Anticipated discharge in a.m. Anticipated discharge placement: [facility] Patient care time: Time spent in chart review, patient interview, physical exam, CPOE, and care documentation: 25 minutes Visit to patient today: 1 Complexity of care: Moderate E&M Codes Rounding: Inpt-Moderate/[id number]
--- NOTE | 2016-06-13 07:30 | Progress Note ---
Subjective General Note Date: June 13, 2016 Admission Date: June 04, 2016 Hospital Day: 10 PCP: Ashok Griffin M.D. Status: Inpatient Advanced Directive: NO CODE Room: 207 Brief History: The patient is a 71-year-old white female with a significant past medical history of herbal vascular disease status post CVA, atrial fibrillation, chronic anticoagulation, who presented to [facility] emergency department on the day of admission secondary to complaints of mental status changes. [facility] ER evaluation was consistent with acute mental status changes, UTI. Secondary to the above, the patient was admitted by Jaxon Cassidy M.D. for further evaluation and treatment. For other history present illness, past medical history, family history, social history, review of systems, and admission physical examination please see the patient's history and physical examination and ER visit note in the patient's medical record. Subjective: The patient states she is doing well today. No complaints. Slightly confused. Agitation well-controlled Patient requests: [patient requests] Medications and Allergies Medications None Current Medications Sig/Allie Start time Last Medication Dose Route Stop Time Status Admin Lisinopril 10 MG BID 06/12 2100 AC 06/12 PO 2138 Warfarin Sodium 2 MG DAILY@1400 06/10 1400 AC 06/12 PO 1309 Haloperidol Lactate See Dose Q6H PRN 06/07 0945 AC 06/12 Insts (1) IM 0734 Atorvastatin Calcium 80 MG QPM 06/05 1800 AC 06/12 PO 1808 Pantoprazole Sodium 40 MG DAILY@0600 06/05 0600 AC 06/13 Sesquihydrate PO 0610 Gabapentin 300 MG TID 06/04 2200 AC 06/13 PO 0610 Docusate Sodium 100 MG BID 06/04 2099 AC 06/12 PO 2138 Lamotrigine 200 MG QHS 06/04 2100 AC 06/12 PO 2138 Metoprolol Tartrate 50 MG BID 06/04 2100 AC 06/12 PO 2138 Acetaminophen 650 MG Q4H PRN 06/04 1830 AC 06/12 PO 1150 Citalopram 20 MG DAILY 06/04 183 AC 06/12 Hydrobromide PO 0900 Lamotrigine 300 MG DAILY 06/04 183 AC 06/12 PO 0842 Dose Instructions: (1)Haloperidol Lactate: 2 - 5 MG Allergies Coded Allergies: Penicillins (Intermediate, Nausea 05/20/16) Physical Exam Vital Signs / I&Os Vital Signs Date Time Temp Pulse Resp B/P Pulse O2 O2 Flow FiO2 Ox Delivery Rate 06/13 0631 98.2 82 18 179/93 97 Room Air 06/13 0318 98.2 72 16 136/75 95 Room Air 06/12 2332 98.4 93 18 149/82 96 Room Air 06/12 2134 98.1 97 152/69 95 Room Air 06/12 1805 98.2 79 98 06/12 1621 79 180/78 06/12 1509 98.1 06/12 1437 75 18 179/100 96 Room Air 06/12 0957 98.4 74 18 146/72 95 Room Air 06/12 0755 98.8 83 18 181/97 95 Room Air I&O 06/13 0000 06/12 1600 06/12 0800 Intake Total 0 450 50 Output Total 575 600 750 Balance -575 150 -700 General Appearance Alert, Cooperative, No acute distress Lungs Clear to auscultation, Normal air movement Cardiovascular Normal S1 and S2, irregular rhythm, rate controlled Abdomen Normal bowel sounds, Soft, No tenderness Extremities No cyanosis, No clubbing Neurological Cranial nerves intact, No lateralizing signs Psych/Mental Status Confused, mood normal LAB Results Laboratory Tests 06/12 0755 Coagulation INR (0.8 - 1.2) 2.8 Assessment and Plan Problem List 1. Altered mental status, unspecified Plan -Patient with mild confusion -Intermittently agitated -Consider low-dose Zyprexa 2.5 mg by mouth twice a day if unable to place at [facility] tomorrow -Monitor -I called to discuss possible transfer to psych unit at [facility]. Dr. Casiano was not available. He will be in the a.m. We'll have Dr. Moran called to discuss possible transfer for psych evaluation in a.m. 2. UTI (urinary tract infection) Status Acute Onset Date Unknown Plan -Resolved 3. Chronic anticoagulation Status Chronic Onset Date Unknown Plan -Stable -INR 2.8 -Continue present anticoagulation 4. Atrial fibrillation Status Chronic Onset Date Unknown Plan -Stable -Rate well controlled\ -Continue present therapy 5. Hypertension Status Chronic Onset Date Unknown Plan -Blood pressure much better controlled -BP 124/57 -Monitor -Continue present therapy -Low-salt diet 6. Cerebrovascular accident (CVA) involving left middle cerebral artery territory Plan -Stable -Patient ambulating with minimal assist Current status: Fair, improved-persistent mental status problems Anticipated discharge date: Anticipated discharge in a.m. Anticipated discharge placement: [facility] Patient care time: Time spent in chart review, patient interview, physical exam, CPOE, and care documentation: 25 minutes Visit to patient today: 1 Complexity of care: Moderate E&M Codes Rounding: Inpt-Moderate/[id number]
[2016-06-13 10:43] VITALS: BP 124/57
[2016-06-13 14:18] VITALS: BP 124/70
[2016-06-13 20:04] VITALS: BP 154/65
[2016-06-13 22:20] VITALS: BP 141/78
[2016-06-14 02:14] VITALS: BP 156/71
[2016-06-14 09:03] VITALS: BP 142/71
--- NOTE | 2016-06-14 11:09 | Progress Note ---
Subjective General Patient feels well today. Walking and eating well. Denies pain- no chest pain, abdominal pain. no nausea, vomitting, diarrhea, or constipation. Physical Exam Vital Signs / I&Os Vital Signs Date Time Temp Pulse Resp B/P Pulse O2 O2 Flow FiO2 Ox Delivery Rate 06/14 0903 36.5 62 18 142/71 96 Room Air 06/14 0214 36.4 65 17 156/71 96 Room Air 06/13 2220 36.8 58 17 141/78 97 Room Air 06/13 2030 Room Air 06/13 2003 36.9 72 18 154/65 97 Room Air 06/13 1600 Room Air 06/13 1418 36.6 59 18 124/70 95 Room Air I&O 06/14 0000 06/13 1600 06/13 0800 Intake Total 540 740 Output Total 700 425 465 Balance -160 315 -465 General Appearance Alert, No acute distress Lungs Clear to auscultation, Normal air movement Cardiovascular Regular rate and rhythm, Normal S1 and S2, No murmurs, gallops, rubs Abdomen Normal bowel sounds, Soft, No tenderness Extremities No edema Assessment and Plan Problem List 1. UTI (urinary tract infection) Status Acute Onset Date Unknown Plan Resolved. 2. Atrial fibrillation Status Chronic Onset Date Unknown Plan Rate controlled. 3. Chronic anticoagulation Status Chronic Onset Date Unknown Plan Supratherapeutic today. Coumadin held today. Recheck tomorrow. 4. Hypertension Status Chronic Onset Date Unknown Plan Usually controlled. Will monitor. 5. Altered mental status, unspecified Plan Patient with intermittent agitation. Dr. Casiano has agreed to consult [facility] doesn't have a med. Will wait for a bed. 6. Cerebrovascular accident (CVA) involving left middle cerebral artery territory Plan Stable.
[2016-06-14 14:10] VITALS: BP 132/65
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
== END 2016-06-14 16:00 | disposition short-term general hospital (02) | DRG 689 ==
LOC: ED SRH 09:56 → TRANS SRH 12:21 → ACUTE2 SRH 13:46
PROVIDERS: ADMIT Emergency Medicine
DX: N39.0 Urinary tract infection, site not specified (principal); I63.9 Cerebral infarction, unspecified; I69.359 Hemiplegia and hemiparesis following cerebral infarction affecting unspecified side; R45.851 Suicidal ideations; B96.1 Klebsiella pneumoniae [K. pneumoniae] as the cause of diseases classified elsewhere; I65.22 Occlusion and stenosis of left carotid artery; I48.2 Chronic atrial fibrillation; I10 Essential (primary) hypertension; R45.1 Restlessness and agitation; J44.9 Chronic obstructive pulmonary disease, unspecified; E78.5 Hyperlipidemia, unspecified; F32.9 Major depressive disorder, single episode, unspecified; Z79.01 Long term (current) use of anticoagulants; Z87.440 Personal history of urinary (tract) infections; Z66 Do not resuscitate
CPT/HCPCS: 81460; 85241; 90004; 90047; 90074; 90100; 90148; 90469; 90616; 91320; 91504; 91505; 91588; 92530; 92610; 92720; 92740; 92760; 92761; 92762; 92763; 92764; 92765; 92766; 92767; 93140; 94060; 94112; 95059; 98480